=== PATIENT | male | born 1940 | race Caucasian/White ===

== ENCOUNTER 2016-09-05 12:44 | Day surgery (SDC) | payer OTHER ==
[~2016-09-05] VITALS: Ht 165.1 cm; Wt 46.6 kg
[2016-09-05] MEDS ORDERED: SODIUM CHLORID 0.9% 500 ML IV PRN (13:00)
[2016-09-05] MEDS ORDERED: LACTATED RINGER'S 1000 ML IV PRN (13:00)
[2016-09-05] MEDS ORDERED: METOPROLOL TARTRATE 25 MG TAB PO PRN (13:15)
[2016-09-05] MEDS ORDERED: CHLORHEXIDINE GLUCONATE 2 % 1 PACK (2 CLOTHS) TOPICAL PRN (13:15)
[2016-09-05] MEDS ORDERED: POVIDONE IODINE 5% (ANTISEPSIS KIT) 4 APPLICATIONS EACH NARE PRN (13:15)
[2016-09-05] MEDS ORDERED: INSULIN HUMAN REGULAR 1,000 UNITS/10 ML VIAL SQ PRN (13:15)
[2016-09-05] MEDS ORDERED: LORazepam 1 MG TAB SL SCH (13:15)
[2016-09-05] MEDS ORDERED: FISHCAP4 PO (13:26)
[2016-09-05] MEDS ORDERED: LIPI40TA PO (13:26)
[2016-09-05] MEDS ORDERED: PANT20TA2 PO (13:26)
[2016-09-05] MEDS ORDERED: LISI-515 PO (13:26)
[2016-09-05] MEDS ORDERED: MULT-135 PO (13:27)
[2016-09-05] MEDS ORDERED: METO-309 PO (13:27)
[2016-09-05] MEDS ORDERED: XARE20TA PO (13:27)
[2016-09-05 13:28] VITALS: BP 134/74; PULSE 72; RESP 16; TEMP 98.1; O2SAT 100
[2016-09-05] MEDS ORDERED: ceFAZolin 2 GM PREMIX 50 ML IV SCH (13:30)
[2016-09-05] MEDS ORDERED: NS 1000 ML IV SCH (13:30)
[2016-09-05] MEDS ORDERED: MUPIROCIN 2% OINT 1 APPLIC/GM SYR NASAL SCH (13:30)
[2016-09-05] MEDS ORDERED: CHLORHEXIDINE GLUCONATE 2 % 1 PACK (2 CLOTHS) TOPICAL SCH (13:30)
[2016-09-05] MEDS ORDERED: VANCOMYCIN 1000 MG/NS 250 ML IV SCH ×2 (13:30)
[2016-09-05 13:55] LABS: AUTOMATED NEUTROPHIL # 5.1 TH/MM3 (1.8-7.7); BASOPHIL % 0.4 % (0.0-2.0); EOSINOPHIL # 0.1 TH/MM3 (0-0.4); EOSINOPHIL % 1.6 % (0.0-4.0); HEMATOCRIT 43.9 % (39.0-51.0); HEMO FLAGS DIFF FINAL; LYMPH % 20.3 % (9.0-44.0); LYMPHOCYTE # 1.5 TH/MM3 (1.0-4.8); MEAN CORPUSCULAR HEMOGLOBIN 32.5 PG (27.0-34.0); MEAN CORPUSCULAR HGB CONC 34.2 % (32.0-36.0); MONO % 10.6 % (0.0-8.0); NEUT % 67.1 % (16.0-70.0); PLATELET COUNT 240 TH/MM3 (150-450); RED BLOOD COUNT 4.62 MIL/MM3 (4.50-5.90); RED CELL DISTRIBUTION WIDTH 13.2 % (11.6-17.2); WHITE BLOOD COUNT 7.6 TH/MM3 (4.0-11.0)
[2016-09-05 14:02] LABS: APTT (PATIENT) 26.2 SEC (24.3-30.1); PROTHROMBIN TIME - PATIENT 10.8 SEC (9.8-11.6)
[2016-09-05 14:11] LABS: BICARBONATE 27.2 MEQ/L (21.0-32.0); POTASSIUM 3.9 MEQ/L (3.5-5.1)
[2016-09-05] MEDS ORDERED: ISOPROTERENOL HCL 1 MG/5 ML AMP ONE (17:51)
[2016-09-05] MEDS ORDERED: SODIUM CHLOR 0.9% 250 ML INJ 250 ML ONE (17:52)
[2016-09-05] MEDS ORDERED: MIDAZOLAM HCL 2 MG/2 ML VIAL ONE (17:52)
[2016-09-05] MEDS ORDERED: HEPARIN-NS/PF INJ 500 ML ONE (17:56)
[2016-09-05] MEDS ORDERED: PROPOFOL 200 MG/20 ML AMP IV ONE (18:23)
[2016-09-05] MEDS ORDERED: PHENYLEPH/NS 1000 MCG/10 ML SYR IV ONE (18:23)
[2016-09-05] MEDS ORDERED: SODIUM CHLOR 0.9% 250 ML BAG IV ONE (18:23)
[2016-09-05] MEDS ORDERED: ONDANSETRON HCL 4 MG/2 ML VIAL IV PRN (19:00)
[2016-09-05] MEDS ORDERED: METOCLOPRAMIDE HCL 10 MG/2 ML VIAL IV PRN (19:00)
[2016-09-05] MEDS ORDERED: SODIUM CHLOR 0.9% 250 ML INJ 250 ML IV PRN (19:00)
[2016-09-05] MEDS ORDERED: LIDOCAINE HCL 1% 50 ML VIAL INFIL PRN (19:00)
[2016-09-05] MEDS ORDERED: oxyCODONE/ACETAMINOPHEN 5 MG/325 MG TAB PO PRN ×2 (19:00)
[2016-09-05] MEDS ORDERED: ATROPINE SULFATE 1 MG/ML VIAL IV PRN (19:00)
[2016-09-05] MEDS ORDERED: LORazepam 2 MG/ML VIAL IV PRN (19:00)
[2016-09-05] MEDS ORDERED: BACITRACIN OINT 0.9 GM PKT TOP ONE (20:00)
[2016-09-05 20:50] VITALS: BP 99/57; PULSE 85; RESP 16; TEMP 97.6; O2SAT 99
[2016-09-05 20:56] VITALS: PULSE 79
[2016-09-05] MEDS ORDERED: ATORVASTATIN 40 MG TAB PO SCH (21:00)
[2016-09-05] MEDS ORDERED: DO NOT ADM ANY ANTICOAGULANT DRUGS PRN (21:45)
[2016-09-05 22:00] VITALS: PULSE 80
[2016-09-05] MEDS: RIVAROXABAN 20 MG TAB PO SCH (22:12)
[2016-09-05] MEDS: METOPROLOL TARTRATE 50 MG TAB PO SCH (22:12)
[2016-09-05 22:49] VITALS: O2SAT 98
[2016-09-05 23:00] VITALS: BP 101/50; PULSE 79; PULSE 80; RESP 16; TEMP 97.8; O2SAT 98
[2016-09-06] VITALS (13 sets, daily range): BP systolic 107–108; BP diastolic 54–60; PULSE 69–94; RESP 16; TEMP 97.9–98; O2SAT 95–99
[2016-09-06 06:12] LABS: APTT (PATIENT) 36.2 SEC (24.3-30.1); INTERNATIONAL NORMALIZED RATIO 1.5 RATIO; PROTHROMBIN TIME - PATIENT 16.7 SEC (9.8-11.6)
--- NOTE | 2016-09-06 06:59 | PD.CARD.PN ---
Subjective Subjective Remarks Feels ok. Objective Medications Current Medications Medications (Trade) Dose Ordered Sig/Yaakov Route Start Time Stop Time Status Last Admin Lactated Ringer's 1,000 ml @ 30 mls/hr Q24H PRN IV 09/05/16 13:00 09/08/16 12:59 Sodium Chloride 500 ml @ 30 mls/hr [id number] PRN IV 09/05/16 13:00 09/08/16 12:59 (NS 1000 ml Inj) 1,000 ml @ 30 mls/hr Q24H IV 09/05/16 13:30 (Percocet 5-325 Mg) 1 tab Q4H PRN PO 09/05/16 19:00 (Percocet 5-325 Mg) 2 tab Q4H PRN PO 09/05/16 19:00 (Ativan Inj) 0.5 mg UNSCH PRN IV 09/05/16 19:00 09/06/16 18:59 Atropine Sulfate 0.5 mg 0.5 mg UNSCH PRN IV 09/05/16 19:00 (NS 250 ml Inj) 250 ml @ 500 mls/hr ONCE PRN IV 09/05/16 19:00 09/06/16 18:59 (Reglan Inj) 10 mg Q4H PRN IV 09/05/16 19:00 (Zofran Inj) 4 mg Q4H PRN IV 09/05/16 19:00 (Xylocaine 1% Inj (50 ml)) 10 ml UNSCH PRN INFIL 09/05/16 19:00 09/06/16 18:59 (Lipitor) 40 mg HS PO 09/05/16 21:00 09/05/16 22:11 (Prinivil) 20 mg DAILY PO 09/06/16 09:00 (Lopressor) 50 mg BID PO 09/05/16 21:00 09/05/16 22:12 (Theragran) 1 tab DAILY PO 09/06/16 09:00 (Protonix) 20 mg DAILY PO 09/06/16 09:00 (Xarelto) 20 mg DAILY PO 09/05/16 21:00 09/05/16 22:12 Miscellaneous Information ALL NURSING DEPARTME... UNSCH PRN .XX 09/05/16 21:45 09/06/16 21:44 Vital Signs / I&O Vital Signs Date Time Temp Pulse Resp B/P Pulse Ox O2 Delivery O2 Flow Rate FiO2 09/06/16 06:00 69 09/06/16 05:02 76 09/06/16 04:00 78 09/06/16 03:00 97.9 83 16 108/60 99 09/06/16 03:00 75 09/06/16 02:00 72 09/06/16 01:00 74 09/06/16 00:00 80 09/05/16 23:00 97.8 80 16 101/50 98 09/05/16 23:00 79 09/05/16 22:49 98 09/05/16 22:00 80 09/05/16 20:56 79 09/05/16 20:50 97.6 85 16 99/57 99 09/05/16 13:28 98.1 72 16 134/74 100 I/O 09/05/16 09/05/16 09/05/16 09/06/16 09/06/16 09/06/16 07:00 15:00 23:00 07:00 15:00 23:00 Intake Total 240 ml Output Total 300 ml Balance -60 ml Intake Oral 240 ml Output Urine Total 300 ml # Bowel Movements 0 Physical Exam GENERAL: Well-nourished, well-developed patient. SKIN: Warm and dry. Groin sites soft with no bruising or swelling. HEAD: Normocephalic. EYES: No scleral icterus. No injection or drainage. NECK: Supple, trachea midline. No JVD or lymphadenopathy. CARDIOVASCULAR: Regular rate and rhythm without murmurs, gallops, or rubs. RESPIRATORY: Breath sounds equal bilaterally. No accessory muscle use. GASTROINTESTINAL: Abdomen soft, non-tender, nondistended. EXTREMITIES: No cyanosis, or edema. NEUROLOGICAL: Awake, alert, and oriented x 3. Non-focal. Laboratory Laboratory Tests Test 09/05/16 09/06/16 13:30 05:45 White Blood Count 7.6 TH/MM3 Red Blood Count 4.62 MIL/MM3 Hemoglobin 15.0 GM/DL Hematocrit 43.9 % Mean Corpuscular Volume 95.0 FL Mean Corpuscular Hemoglobin 32.5 PG Mean Corpuscular Hemoglobin 34.2 % Concent Red Cell Distribution Width 13.2 % Platelet Count 240 TH/MM3 Mean Platelet Volume 9.2 FL Neutrophils (%) (Auto) 67.1 % Lymphocytes (%) (Auto) 20.3 % Monocytes (%) (Auto) 10.6 % Eosinophils (%) (Auto) 1.6 % Basophils (%) (Auto) 0.4 % Neutrophils # (Auto) 5.1 TH/MM3 Lymphocytes # (Auto) 1.5 TH/MM3 Monocytes # (Auto) 0.8 TH/MM3 Eosinophils # (Auto) 0.1 TH/MM3 Basophils # (Auto) 0.0 TH/MM3 CBC Comment DIFF FINAL Differential Comment Prothrombin Time 10.8 SEC 16.7 SEC Prothromb Time International 1.0 RATIO 1.5 RATIO Ratio Activated Partial 26.2 SEC 36.2 SEC Thromboplast Time Sodium Level 141 MEQ/L Potassium Level 3.9 MEQ/L Chloride Level 105 MEQ/L Carbon Dioxide Level 27.2 MEQ/L Anion Gap 9 MEQ/L Blood Urea Nitrogen 20 MG/DL Creatinine 1.08 MG/DL Estimat Glomerular Filtration 67 ML/MIN Rate Random Glucose 92 MG/DL Calcium Level 9.3 MG/DL Blood Type O POSITIVE Antibody Screen NEGATIVE Blood Bank Comment Assessment and Plan Problem List: (1) Atrial flutter Assessment and Plan: NSR this a.m. s/p ablation. (2) S/P ablation of atrial flutter Assessment and Plan: Groin sites stable, continue Xarelto, DC home, f/u with Dr. Talbert in 3 weeks. Discussed Condition With pt., RN, Dr. Talbert. Problem Qualifiers (1) Atrial flutter: Qualified Code: I48.92 - Atrial flutter, unspecified type Maryam José [facility] Sep 06, 2016 06:59
[2016-09-06] MEDS ORDERED: LISINOPRIL 20 MG TAB PO SCH (09:00)
[2016-09-06] MEDS ORDERED: MULTIVITAMIN TAB PO SCH (09:00)
[2016-09-06] MEDS ORDERED: PANTOPRAZOLE SOD 20 MG DELAYED RELEASE TAB PO SCH (09:00)
[2016-09-06] MEDS: RIVAROXABAN 20 MG TAB PO SCH (09:24)
[2016-09-06] MEDS: METOPROLOL TARTRATE 50 MG TAB PO SCH (09:24)
--- NOTE | 2016-09-06 10:20 | EKG ---
Date Performed: 09/06/2016 Time Performed: 04:48:12 PTAGE: 76 years EKG: Sinus arrhythmia with 1st degree A-V block Left ventricular hypertrophy by voltage only Abn ormal ECG PREVIOUS TRACING : 09/05/2016 21.13 Compared to the previous tracing T wave abnormalities are l ess prominent DOCTOR: Dalton Kelly Interpretating Date/Time 09/06/2016 10:20:06
--- NOTE | 2016-09-06 12:54 | EKG ---
Date Performed: 09/05/2016 Time Performed: 21:13:02 PTAGE: 76 years EKG: Sinus arrhythmia with 1st degree A-V block Left ventricular hypertrophy Anterolateral T wav e changes may be due to hypertrophy and/or ischemia Abnormal ECG NO PREVIOUS TRACING DOCTOR: Dalton Kelly Interpretating Date/Time 09/06/2016 12:52:52
--- NOTE | 2016-09-06 13:26 | EKG ---
Date Performed: 09/05/2016 Time Performed: 13:53:30 PTAGE: 76 years EKG: Sinus rhythm with 1st degree A-V block Consider left atrial abnormality Left ventricular hypertrophy by voltage o nly Septal T wave changes are nonspecific Abnormal ECG NO PREVIOUS TRACING DOCTOR: Dalton Kelly Interpretating Date/Time 09/06/2016 13:25:47
--- NOTE | 2016-09-10 12:14 | MA ---
cc: ABRAHAN BOWMAN M.D. DATE 09/10/2016 PROCEDURE PERFORMED Electrophysiology study, CS cannulation, 3-D mapping radiofrequency ablation of atrial flutter, repeat electrophysiology study on Isuprel infusion. INDICATIONS FOR PROCEDURE Mr. Josue is a 76-year-old gentleman with atrial flutter, very symptomatic, referred for electrophysiology study and ablation. The risks, the nature and the benefit of the procedure are clearly stated to him. The risks include pneumothorax, cardiac perforation, stroke and even . He understood and agreed to proceed. PROCEDURE After written informed consent was obtained, the patient was brought to the EP Lab where he was prepped and draped in the usual sterile fashion. Conscious sedation was initiated and maintained throughout the procedure by the anesthesiologist. Once sedation was verified, the right and left inguinal area was anesthetized with 2% Xylocaine. Using modified Seldinger technique, the left femoral vein was cannulated on three occasions and three guidewires advanced over the wire. Three 5-Kazakh Hemaquets were advanced. Then the right femoral vein was done on two occasions. Two guidewires were advanced over the wire. A 6 and an 8-Kazakh Hemaquet were advanced. Then, under fluoroscopic guidance through the 5 and 6-Kazakh Hemaquet, four 5-Kazakh Kirsty curved quadripolar electrophysiology catheters were advanced and positioned on the His, upper right atrium, coronary sinus and right ventricular apex. Basic interval was measured. The patient was in atrial flutter. Entrainment was performed and was positive. Then, through the 8-Kazakh Hemaquet, a Cordis F-curve, 8-mm mapping and radiofrequency ablation catheter was advanced. Using Ecorithm endocardial solution mapping system, a three-dimensional configuration of the right atrium was performed. Then the catheter was placed at the critical isthmus. Radiofrequency energy was delivered. During the ablation the cycle length was prolonged and subsequently tachyarrhythmia terminated. Further burn was delivered in the area. Then atrial pacing protocol was repeated again and no tachyarrhythmia was induced. Pacing lateral to the line showed activation to the His compared to the CS that indicated bilateral line of block. Then Isuprel infusion was reinitiated. Again no tachyarrhythmia was induced during Isuprel infusion. At that point the procedure was complete. All catheters were removed. The is patient going to be transferred to the recovery room. No incident reported. The patient tolerated the procedure, blood loss minimal. 1. ELECTROCARDIOGRAM: At baseline the patient was in atrial flutter. Postprocedure the patient is sinus rhythm. 2. BASIC INTERVAL: The base cycle length was around 630 milliseconds. Post ablation it was around 180 milliseconds. 3. ATRIAL PACING PROTOCOL: No tachyarrhythmia was induced post ablation. 4. TACHYARRHYTHMIA: Atrial flutter was mapped and ablated. Ablation was successful. CONCLUSIONS Successful electrophysiology study, mapping and radiofrequency ablation of atrial flutter. COMMENT AND RECOMMENDATIONS The patient is going to be transferred to the telemetry unit. He will be observed and when stable will be discharged home. Abrahan Bowman MD HS/SSB /11:13 AM /12:06 PM
== END 2016-09-06 10:40 | disposition home or self-care (01) ==
LOC: HDOC 12:44 → HDIC 12:45 → HCIN 20:20 → HDOC 09-06 10:40
PROVIDERS: ATTEND Internal Medicine Interventional Cardiology
DX: I48.92 Unspecified atrial flutter (principal); R94.31 Abnormal electrocardiogram [ECG] [EKG]; Z79.899 Other long term (current) drug therapy; Z79.01 Long term (current) use of anticoagulants
CPT/HCPCS: 80048; 85025; 85610; 85730; 86850; 86900; 86901; 92960; 93005; 93613; 93623; 93653; C1730; C1732; C2630; J1644; J2250; J2370; J3010; J7050

== ENCOUNTER 2016-10-08 06:31 | Day surgery (SDC) | payer OTHER ==
[2016-10-08] VITALS (9 sets, daily range): BP systolic 91–130; BP diastolic 54–76; PULSE 63–93; RESP 18; TEMP 97.6–98.1; O2SAT 97–100
[~2016-10-08] VITALS: Ht 165.1 cm; Wt 46.8 kg
[~2016-10-08 06:31] MED LIST: LIPI40TA PO; LISI-515 PO; METO-309 PO; MULT-135 PO; PANT20TA2 PO; XARE20TA PO
[2016-10-08] MEDS ORDERED: LACTATED RINGER'S 1000 ML IV PRN (07:15)
[2016-10-08] MEDS ORDERED: INSULIN HUMAN REGULAR 1,000 UNITS/10 ML VIAL SQ PRN (07:15)
[2016-10-08] MEDS ORDERED: METOPROLOL TARTRATE 25 MG TAB PO PRN (07:15)
[2016-10-08] MEDS ORDERED: LORazepam 1 MG TAB SL SCH (07:15)
[2016-10-08] MEDS ORDERED: SODIUM CHLORID 0.9% 500 ML IV PRN (07:15)
[2016-10-08] MEDS ORDERED: SODIUM CHLORID 0.9% 500 ML INJ 500 ML IV SCH (07:15)
[2016-10-08] MEDS ORDERED: CHLORHEXIDINE GLUCONATE 2 % 1 PACK (2 CLOTHS) TOPICAL PRN (07:15)
[2016-10-08] MEDS ORDERED: POVIDONE IODINE 5% (ANTISEPSIS KIT) 4 APPLICATIONS EACH NARE PRN (07:15)
[2016-10-08] MEDS ORDERED: FISHCAP4 PO (07:55)
[2016-10-08 08:24] LABS: AUTOMATED NEUTROPHIL # 5.2 TH/MM3 (1.8-7.7); BASOPHIL % 0.5 % (0.0-2.0); EOSINOPHIL # 0.1 TH/MM3 (0-0.4); HEMATOCRIT 46.6 % (39.0-51.0); HEMO FLAGS DIFF FINAL; LYMPH % 15.9 % (9.0-44.0); LYMPHOCYTE # 1.1 TH/MM3 (1.0-4.8); MEAN CELL VOLUME 96.1 FL (80.0-100.0); MEAN CORPUSCULAR HEMOGLOBIN 32.9 PG (27.0-34.0); MEAN CORPUSCULAR HGB CONC 34.2 % (32.0-36.0); MONO % 8.7 % (0.0-8.0); NEUT % 72.9 % (16.0-70.0); PLATELET COUNT 213 TH/MM3 (150-450); RED BLOOD COUNT 4.86 MIL/MM3 (4.50-5.90); WHITE BLOOD COUNT 7.2 TH/MM3 (4.0-11.0)
[2016-10-08 08:35] LABS: APTT (PATIENT) 21.9 SEC (24.3-30.1); PROTHROMBIN TIME - PATIENT 11.2 SEC (9.8-11.6)
[2016-10-08 09:07] LABS: BICARBONATE 27.1 MEQ/L (21.0-32.0); POTASSIUM 4.2 MEQ/L (3.5-5.1)
[2016-10-08] MEDS ORDERED: ISOPROTERENOL HCL 1 MG/5 ML AMP ONE (10:49)
[2016-10-08] MEDS ORDERED: HEPARIN SODIUM - IV 10,000 UNITS/10 ML VIAL ONE (10:49)
[2016-10-08] MEDS ORDERED: HEPARIN-D5W INJ 250 ML ONE (10:49)
[2016-10-08] MEDS ORDERED: fentaNYL CITRATE 250 MCG/5 ML AMP ONE (10:49)
[2016-10-08] MEDS ORDERED: PROTAMINE SULFATE 50 MG/5 ML VIAL ONE (10:49)
[2016-10-08] MEDS ORDERED: METOPROLOL TARTRATE 5 MG/5 ML VIAL ONE (12:47)
--- NOTE | 2016-10-08 13:03 | PD.CARD ---
Atrial Fibrillation Ablation PROCEDURE DATE: October 08, 2016 PROCEDURES PERFORMED: 1. Electrophysiology study on Isuprel infusion 2. CS cannulation 3. 3-D mapping 4. Transseptal approach 5. Right and left heart catheterization 6. Intracardiac echo 7. Radiofrequency ablation of atrial fibrillation 8. Pulmonary vein isolation 9. Posterior wall ablation 10. Mitral valve isolation 11. Mitral line creation 12. Left atrial tachycardia ablation 13. Roof line creation 14. Floor line creation 15. Anterior wall ablation INDICATIONS FOR THE PROCEDURE Mr. Josue is a 76-year-old male with atrial fibrillation, very symptomatic, on anticoagulation referred for electrophysiology study and ablation. The risks, the nature and the benefits of the procedure were clearly stated to him. The risks include pneumothorax, cardiac perforation, stroke, need for open heart surgery and even . The patient understood and agreed to proceed. DESCRIPTION OF THE PROCEDURE IN DETAIL As written informed consent was obtained prior to esophageal echocardiogram, the patient was kept on the table where he was prepped and draped in the usual sterile fashion. Conscious sedation was initiated and maintained throughout the procedure by the anesthesiologist. Once sedation was verified, the right and left inguinal areas were anesthetized with 2% Xylocaine. Using modified Seldinger technique, the left femoral vein was cannulated on three occasions, three guidewires were advanced. Over the wire a 6, 7 and a 10-Irish Hemaquet were advanced. Then the left femoral artery was cannulated on one occasion, one guidewire was advanced. Over the wire a 4-Irish Hemaquet was advanced. Then the right femoral vein was cannulated on one occasion, one guidewire was advanced. Over the wire a 8-Irish Hemaquet was advanced. Then under fluoroscopic guidance through the 6 and 7-Irish Hemaquet, two 5-Irish Kirsty curved quadripolar electrophysiology catheters were advanced and placed around the His as well as coronary sinus. Basic interval was measured. The patient was in atrial fibrillation. Through the 10-Irish Hemaquet, a Cordis Cleaning AcuNav intracardiac echo catheter was advanced and placed at the right atrium. Multiple view was obtained. There was no pericardial effusion, pulmonary vein was seen, atrial septal was visualized. Then the 8-Irish Hemaquet in the right femoral vein was exchanged for Agilis transseptal sheath that was placed all the way to the superior vena cava. Through the sheath a Taisha needle was advanced, then the sheath, the dilator and the needle were progressed until foci engaged. Once engaged, the needle was advanced. RF was delivered for 2 seconds. I was able to cross into the left atrium. Once the needle crossed, the dilator was advanced. Once the dilator crossed, the sheath was advanced. Once the sheath crossed, the dilator and the needle were removed. At this point I did flood the system and fluid movement was seen in the left atrium the indicates the sheath is in good position. The patient already received 6,000 units of heparin. The goal is to keep an ACT around 350 during ablation. Then through the sheath a [place]. Jeffrey 20 pulse circumferential catheter was advanced. Using Lookmash endocardial solution mapping system, a two- dimensional configuration of the left atrium was obtained. Points were taken at the left superior and inferior veins, right superior and inferior veins, mitral valve, and appendages. Then through the sheath a St. Jeffrey TactiCath 65cm 3.5mm irrigated tipped mapping and radiofrequency ablation catheter was advanced. Esophageal probe was placed temperature monitoring during ablation. When it increased to 0.5 degrees Celsius above baseline, I moved to a different area of the atrium. First I did isolate the left superior and inferior vein. I did make a big [place] around the veins. Posterior was ablated. Then a roof line was created, a floor line was created, a mitral line was isolated. Patient was in atrial tachycardia. Then the right superior and inferior veins were isolated. While ablating at the posterior area of the right inferior vein, cycle length prolong then patient went into sinus rhythm. Then back into atrial tach. A floor line was created. Again patient back into sinus rhythm. Atrial pacing was performed. No tachycardia was induced. I did remap the atrium. There is no significant signal in the atrium. The circumferential catheter again into the vein. There was no signal into the vein, pacing from the vein showed no conduction to the atrium. Isuprel infusion was initiated at 20 mcg for over 10 minutes. No tachyarrhythmia was induced, post Isuprel no tachyarrhythmia was induced. At that point the procedure was complete. All catheters were removed, atrial septal sheath was exchanged for 9-Irish Hemaquet, intracardiac echo showed no pericardial effusion. There is still good flow in the pulmonary vein. The patient is going to be transferred to the recovery room. No incident report. The patient tolerated the procedure. Blood loss was minimal. FINDINGS 1. Electrocardiogram: At baseline the patient was in atrial fibrillation, post procedure the patient was in sinus rhythm. 2. Basic interval: Base cycle length was around 520. Post ablation she was around 980 milliseconds. AH at 80 and HV at 52 milliseconds. 3. Tachyarrhythmia: Atrial fibrillation was mapped and ablated. Atrial tachycardia was ablated. The ablation was successful. CONCLUSION Successful electrophysiology study, mapping, radiofrequency ablation of atrial fibrillation, left atrial tachycardia, pulmonary vein isolation, posterior ablation, mitral valve isolation, mitral line creation, roof line creation, floor line creation, left atrial tachycardia. COMMENTS AND RECOMMENDATIONS The patient is going to be transferred to the telemetry unit. Will be observed and when stable can be discharged home. Azra Talbert MD October 08, 2016 13:02
--- NOTE | 2016-10-08 13:10 | CATHPROC ---
easyfolio HIS Report Study Information Study Number Admission Scheduled Start Study Start [id number] 10/08/2016 10/08/2016 10/08/2016 Referring Institution Admit Source Facility Department 1 Other [facility] Physician and Clinical Staff Initial Azra Fonseca Tank Farm Operator Roseanne Lockwood RCIS Tank Farm Operator Joann Shane,RT(R) TECH2 Other Anesthesia, CONDUCTOR SLEEPING CAR Recorder Lamar Gong,PATRICK Recorder Guera Waldrop,PATRICK Scrub Chucho Suarez,RT(R) Procedures Performed Procedure Location (Site) Vessel Name Ablation Procedure ICE CATHETER INSERT RA Atruim RF Ablation LT. ATRIUM LT. ATRIUM Equipment Time Chuck Boner Description Size Mfg Part Number Used/Scraped NEEDLE, TRANSSEPTAL NRG 98 10:43 [facility] [id number] Used C1 [employer]/ EP 10:43 KIT, TRANSDUCER / AFIB [id number] Used PACER COVER, TRANSDUCER CABLE 10:43 [employer] 612-113 Used ACUNAV 10:43 CORDIS/PACER SHEATH, FR10 FLAVIO 11CM FR 10 [id number] Used 10:43 CORDIS/PACER SHEATH, FR9 FLAVIO 11CM FR 9 [id number] Used 12:26 CORDIS/PACER SHEATH, FR9 FLAVIO 11CM FR 9 [id number] Used 10:43 Funding [employer] INDUSTRIES PACK, CCL CUSTOM * [id number] Used 10:43 Funding Profiles PACER GIRON, LIMB * 2530 Used [id number] 10:43 [employer] MEDICAL SHEATH, FR4.5 PRELUDE 11CM FR 4.5 Used [id number] 10:43 NAMIC TUBING, HIGH PRESSURE 48" 48" [id number] Used 10:43 NAMIC TUBING, HIGH PRESSURE 48" 48" [id number] Used 10:43 [employer] BL[employer],WARM AIR CCL * [id number] Used [id number] CATHETER, TACTICATH ABLAT BUNDLE 10:43 [employer] Used 65 BUNDLE *[id number] BUNDLE [id number] CATHETER, FR7 OPTIMA SPIRAL 10:43 [employer] FR7 *[id number] Used BUNDLE BUNDLE [id number] 10:43 [employer] CATHETER, JSN, QUAD BUNDLE FR 5 *[id number] Used BUNDLE [id number] 10:43 [employer] CATHETER, JSN, QUAD BUNDLE FR 5 *[id number]- Used BUNDLE 10:43 [employer] ELECTRODE KIT, MAYNOR X SURFACE * [id number] Used SET, COOL POINT TUBING 10:43 [facility] [employer] [id number] Used BUNDLE 10:43 [employer] SHEATH, EPS, FR6 FAST CATH FR 6 [id number] Used 10:43 [employer] SHEATH, EPS, FR7 FAST CATH FR [address] [id number] Used 10:43 [employer] SHEATH, EPS, FR8 FAST CATH FR 8 [id number] Used SHEATH, FR8.5 STEERABLE SM 10:43 [facility] 71CM [id number] Used 71CM BUNDLE CATHETER, ACUNAV FR10 ICE [id number] 11:51 JANNETTE FR 10 Used (JANNETTE) *[id number] [facility] PAD, ELECTROSURGICAL 10:43 * [id number] Used SURGICAL GROUNDING (BLUE) History: Allergies Allergy Reaction NKDA No Known Allergies History: Risk Factors Hypertension Dyslipidemia Yes Yes Diabetes Labs Hgb (g/dl) Hct (%) RBC (MIL/MM3) WBC (l/cumm) Platelets (thousands) 12.00-18.00 37.00-55.00 4.80-6.20 4.80-10.80 140.00-450.00 16.0 46 4.8 7.2 213 Medication Medication Total Dose (Bolus/Oral) Medication Total Dosage/Unit 1% XYLOCAINE 40 mL HEPARIN 7000 units LOPRESSOR 5 mg PROTAMINE 40 mg Medications (Bolus/Oral) Medication Time Given Dosage/Unit Administered By Reason 1% XYLOCAINE 10/08/2016 11:38:48 AM 20 mL Azra Talbert 20 mL 1% XYLOCAINE given in lab by Azra Talbert in Left Groin via Subcutaneous. 1% XYLOCAINE 10/08/2016 11:42:21 AM 20 mL Azra Talbert 20 mL 1% XYLOCAINE given in lab by Azra Talbert in Right Groin via Subcutaneous. HEPARIN 10/08/2016 11:47:00 AM 6000 units Anesthesia, CONDUCTOR SLEEPING CAR 6000 units HEPARIN given in lab by Anesthesia, CONDUCTOR SLEEPING CAR via Peripheral IV. HEPARIN 10/08/2016 12:11:03 PM 1000 units Anesthesia, CONDUCTOR SLEEPING CAR As per physicians el bal order 1000 units HEPARIN given in lab by Anesthesia, CONDUCTOR SLEEPING CAR via Peripheral IV. Ordered by Azra Talbert. Reas on: As per physicians verbal order. LOPRESSOR 10/08/2016 12:49:00 PM 5 mg Anesthesia, CONDUCTOR SLEEPING CAR As per physicians verb al order 5 mg LOPRESSOR given in lab by Anesthesia, CONDUCTOR SLEEPING CAR via Peripheral IV. Ordered by Azra Talbert. Reason: As per physicians verbal order. PROTAMINE 10/08/2016 12:56:27 PM 40 mg Anesthesia, CONDUCTOR SLEEPING CAR As per physicians verb al order 40 mg PROTAMINE given in lab by Anesthesia, CONDUCTOR SLEEPING CAR via Peripheral IV. Ordered by Arza Talbert. Reason: As per physicians verbal order. Medication (Drip) Medication Time Given Dosage/Unit Concentration/Unit Diluent (ml) Solution HEPARIN DRIP 10/08/2016 12:11:16 PM 100 units/hr 74490 units 250 D5W 100 units/hr HEPARIN DRIP given in lab by Anesthesia, CONDUCTOR SLEEPING CAR via Peripheral IV. Pump/Drip Flow = 1 ml/h r [place] [address] units in 250 ml. Ordered by Azra Talbert. Reason: As per physicians verbal order. ISUPREL 10/08/2016 12:35:04 PM 20 mcg/min 1 mg 250 NaCl .9 20 mcg/min ISUPREL given in lab by Anesthesia, CONDUCTOR SLEEPING CAR via Peripheral IV. Pump/Drip Flow = 300 ml/hr usi ng NaCl .9 with a concentration of 1 mg in 250 ml. Ordered by Azra Talbert. Reason: As per physicians verbal order. LEVAQUIN 10/08/2016 11:08:51 AM 100 mL/hr 500 100 NaCl .9 100 mL/hr LEVAQUIN given by Anesthesia, CONDUCTOR SLEEPING CAR via Peripheral IV. Pump/Drip Flow = 0 ml/hr using NaCl . 9 with a concentration of 500 in 100 ml. Initial Case Assessment Cardiovascular HR Rhythm NIBP Chest Pain 98 af 139/91 0 Edema Present Skin color Skin None Normal Warm Dry Circulatory - Right Pulses Dorsalis Pedis 1 Scale (0,1,2,3,4,d) Circulatory - Left Pulses Dorsalis Pedis 2 Scale (0,1,2,3,4,d) Circulatory - Lower Extremities Color Lower Right Color Lower Left Normal Normal Neurological State Oriented to time-place- Alert Moves all extremities person Respiration - General Respiration Rate SpO2 (%) (B/min) 20 98 Final Case Assessment Cardiovascular HR Rhythm NIBP Chest Pain 97 sr 95/48 0 Edema Present Skin color Skin None Normal Warm Dry Circulatory - Right Pulses Dorsalis Pedis 1 Scale (0,1,2,3,4,d) Circulatory - Left Pulses Dorsalis Pedis 2 Scale (0,1,2,3,4,d) Circulatory - Lower Extremities Color Lower Right Color Lower Left Normal Normal Neurological State Lethargic Moves all extremities Respiration - General Respiration Rate SpO2 (%) O2 (lpm) (B/min) 16 100 10 Chronological Log Time Study Chronological Log 10:49:19 Patient arrived via Bed. 10:49:19 Patient Name, D.O.B, / Armband Verified By R.N. 10:49:20 Consent signed by the physician and the patient and verified by the [facility] staff. 10:49:21 Pre-op and post- op instructions given; patient acknowledges understanding of instructions. 10:49:22 Verbal Stimulation=2 Physical Stimulation=2 Airway=2 Respiration=2 TOTAL=8. (0=absent, 1=li mited, 2=present) 10:49:32 Patient has been NPO for More than 6Hrs. 10:49:32 Skin Breakdown- generalized ecchymosis et scratches to upper extremities 10:49:57 Patient Warmer Placed on the Table. 10:49:58 Disposable Defibrillator Pads Placed On Patient. 10:49:59 Edmund Prominences Protected 10:50:01 A # 20 IV was noted in the Forearm (left). Grade = 0 0.9ns kvo 10:50:03 A # 20 IV was noted in the Wrist (right). Grade = 0 0.9ns kvo 10:50:30 Anesthesia at bedside. Assumes care of patient. Assessment: Initial Case, HR=98 BPM, Rhythm=af, VTPB=400/91 mmhg, Chest Pain=0, Edema=None, Col or=Normal, Skin = Warm, Dry Right Pulses: Segun Ped=1 Left Pulses: Segun Ped=2 11:00:48 Lower Right Extremities: Color=Normal Lower Left Extremities: Color=Normal Neurological: State=Alert, Ox3, VARGAS Respiration: Resp=20 B/min, SpO2=98 % 11:01:20 Table restraints applied according to hospital policy 100 mL/hr LEVAQUIN given by Anesthesia, CONDUCTOR SLEEPING CAR via Peripheral IV. Pump/Drip Flow = 0 ml/hr using NaCl .9 with a 11:08:51 concentration of 500 in 100 ml. 11:14:21 Reference ECG taken 11:23:59 Farrar Catheter inserted by PATRICK Newton. Clear yellow drainage noted upon insertion. 11:27:48 MD paged 11:30:10 MD arrived. MM out. JA in. Time Out #2 - Consents verified, patient in correct position, all results are labled and displa yed, safety precautions 11:33:13 taken, antibiotics administered. Time out concurred by MD, individual staff and CONDUCTOR SLEEPING CAR in procedu re 11:34:00 Case Start Time Out. Correct patient, procedure, procedure equipment, site and side verified with physicia n present. Time 11:34:06 concurred by MD, individual staff and CONDUCTOR SLEEPING CAR. 11:34:17 NAT in progress 11:37:51 NAT complete 11:38:48 20 mL 1% XYLOCAINE given in lab by Azra Talbert in Left Groin via Subcutaneous. 11:39:17 Vascular access was obtained in the Fem Vein (left). 11:39:19 A SHEATH, EPS, FR6 FAST CATH FR 6 was advanced into the Fem Vein (left) using the Percutane ous technique. 11:39:39 Vascular access was obtained in the Fem Vein (left). 11:39:41 A SHEATH, EPS, FR7 FAST CATH FR 7 was advanced into the Fem Vein (left) using the Percutane ous technique. 11:39:44 Vascular access was obtained in the Fem Vein (left). 11:39:45 A SHEATH, FR10 FLAVIO 11CM FR 10 was advanced into the Fem Vein (left) using the Percutaneo us technique. 11:39:49 Vascular access was obtained in the Fem Art (left). 11:39:50 A SHEATH, FR4.5 PRELUDE 11CM FR 4.5 was advanced into the Fem Art (left) using the Percutan eous technique. 11:42:21 20 mL 1% XYLOCAINE given in lab by Azra Talbert in Right Groin via Subcutaneous. 11:42:41 Vascular access was obtained in the Fem Vein (right). 11:42:45 A SHEATH, EPS, FR8 FAST CATH FR 8 was advanced into the Fem Art (right) using the Percutane ous technique. A CATHETER, JSN, QUAD BUNDLE FR 5 was advanced vis Fem Vein (left) and placed in the CS. Placem ent was visually 11:43:50 confirmed under fluoroscopy. A CATHETER, JSN, QUAD BUNDLE FR 5 was advanced vis Fem Vein (left) and placed in the HIS. Place ment was 11:45:26 visually confirmed under fluoroscopy. 11:46:40 CATHETER, ACUNAV FR10 ICE ([facility]) FR 10 Was Postioned. 11:47:00 6000 units HEPARIN given in lab by Anesthesia, CONDUCTOR SLEEPING CAR via Peripheral IV. A SHEATH, FR8.5 STEERABLE SM 71CM BUNDLE 71CM was exchanged in the Fem Vein (right). This was n ecessary in 11:48:59 order for catheter support. 11:49:01 Yehuda needle inserted A CATHETER, FR7 OPTIMA SPIRAL BUNDLE FR7 was advanced vis Fem Vein (right) and placed in the LA . Placement 11:49:54 was visually confirmed under fluoroscopy. 11:50:00 Yehuda needle removed 11:51:00 mapping in progress 11:59:27 Mapping complete. Catheter was removed. A CATHETER, TACTICATH ABLAT 65 BUNDLE was advanced vis Fem Vein (right) and placed in the LA. P lacement was 11:59:35 visually confirmed under fluoroscopy. 12:00:00 JA out. MM in. 12:00:32 Activated Clotting Time Drawn 12:05:05 ACT (Normal Range 90-180) = 323 12:05:20 RF Ablation of the LT. ATRIUM with a CATHETER, TACTICATH ABLAT 65 BUNDLE. 1000 units HEPARIN given in lab by Anesthesia, CONDUCTOR SLEEPING CAR via Peripheral IV. Ordered by Azra Talbert . Reason: As per 12:11:03 physicians verbal order. 100 units/hr HEPARIN DRIP given in lab by Anesthesia, CONDUCTOR SLEEPING CAR via Peripheral IV. Pump/Drip Flow = 1 ml/hr using D5W 12:11:16 [place] [address] units in 250 ml. Ordered by Azra Talbert. Reason: As per physici ans verbal order. 12:17:25 Activated Clotting Time Drawn 12:25:22 ACT (Normal Range 90-180) = 343 20 mcg/min ISUPREL given in lab by Anesthesia, CONDUCTOR SLEEPING CAR via Peripheral IV. Pump/Drip Flow = 300 ml/ hr using NaCl .9 12:35:04 with a concentration of 1 mg in 250 ml. Ordered by Azra Talbert. Reason: As per physicians el bal order. 12:45:02 Isuprel off. 5 mg LOPRESSOR given in lab by Anesthesia, CONDUCTOR SLEEPING CAR via Peripheral IV. Ordered by Azra Talbert. Re ason: As per 12:49:00 physicians verbal order. 12:52:13 Ablation complete. Catheter removed. Mapping catheter in. 12:53:50 PACU called. Spoke to Yamilet 12:53:52 Catheter was removed 12:53:58 Bedside Report will be given. A SHEATH, FR9 FLAVIO 11CM FR 9 was exchanged in the Fem Vein (right). This was necessary in ord er to achieve 12:53:59 vascular hemostasis. 12:55:37 Ablation procedure performed: AFIB. 12:55:41 EP Procedure was performed. 12:55:53 No case complications noted. 12:55:54 Cine recording checked. 12:55:59 Sheath(s) left in place, sutured, 0.9ns kvo connected and will be removed in Holding Area 40 mg PROTAMINE given in lab by Anesthesia, CONDUCTOR SLEEPING CAR via Peripheral IV. Ordered by Azra Talbert. R frannie: As per 12:56:27 physicians verbal order. 12:56:53 Sterile dressing applied to sites 12:57:20 Case End Assessment: Final Case, HR=97 BPM, Rhythm=sr, NIBP=95/48 mmhg, Chest Pain=0, Edema=None, Color= Normal, Skin = Warm, Dry Right Pulses: Segun Ped=1 Left Pulses: Segun Ped=2 12:57:42 Lower Right Extremities: Color=Normal Lower Left Extremities: Color=Normal Neurological: State=Lethargic, VARGAS Respiration: Resp=16 B/min, NjN5=786 %, O2=10 lpm 12:58:59 Sterile dressing applied to site 12:59:06 Defibrillator and ground pads removed. Skin intact. 13:07:20 Activated Clotting Time Drawn 13:09:00 ACT (Normal Range 90-180) = 118 13:15:00 Patient moved to stretcher End Study - Contrast Media Used In Study Contrast Total Opened (mL) Total Used (mL) Total Wasted (mL) Unspecified 0 0 0 End Study - Radiation Exposure Fluoro Time (minutes) 2.9 End Study - Patient Disposition Complications Transferred To Interventional Outcome No Telemetry Bed successful
[2016-10-08] MEDS ORDERED: oxyCODONE/ACETAMINOPHEN 5 MG/325 MG TAB PO PRN ×2 (13:15)
[2016-10-08] MEDS ORDERED: BACITRACIN OINT 0.9 GM PKT TOP ONE (13:15)
[2016-10-08] MEDS ORDERED: METOCLOPRAMIDE HCL 10 MG/2 ML VIAL IV PRN (13:15)
[2016-10-08] MEDS ORDERED: ONDANSETRON HCL 4 MG/2 ML VIAL IV PRN (13:15)
[2016-10-08] MEDS ORDERED: ATROPINE SULFATE 1 MG/ML VIAL IV PRN (13:15)
[2016-10-08] MEDS ORDERED: SODIUM CHLOR 0.9% 250 ML INJ 250 ML IV PRN (13:15)
[2016-10-08] MEDS ORDERED: LIDOCAINE HCL 1% 50 ML VIAL INFIL PRN (13:15)
[2016-10-08] MEDS ORDERED: LORazepam 2 MG/ML VIAL IV PRN (13:15)
[2016-10-08] MEDS ORDERED: DO NOT ADM ANY ANTICOAGULANT DRUGS PRN (13:45)
[2016-10-08] MEDS ORDERED: PROPOFOL 200 MG/20 ML AMP IV ONE (15:27)
[2016-10-08] MEDS ORDERED: RIVAROXABAN 20 MG TAB PO SCH (18:00)
[2016-10-08] MEDS ORDERED: ATORVASTATIN 40 MG TAB PO SCH (21:00)
[2016-10-08] MEDS: METOPROLOL TARTRATE 50 MG TAB PO SCH (21:32)
[2016-10-09] VITALS (11 sets, daily range): BP systolic 89–124; BP diastolic 52–74; PULSE 66–82; RESP 18; TEMP 97.8–98; O2SAT 98
[2016-10-09 05:36] LABS: APTT (PATIENT) 36.1 SEC (24.3-30.1); INTERNATIONAL NORMALIZED RATIO 1.5 RATIO; PROTHROMBIN TIME - PATIENT 16.7 SEC (9.8-11.6)
--- NOTE | 2016-10-09 07:43 | EKG ---
Date Performed: 10/08/2016 Time Performed: 08:03:32 PTAGE: 76 years EKG: atrial flutter. Left ventricular hypertrophy Nonspecific ST-T changes Abnormal ECG PREVIOUS TRACING : 09/06/2016 04.48 DOCTOR: Adam Salomon Interpretating Date/Time 10/09/2016 07:42:41
--- NOTE | 2016-10-09 08:09 | PD.CARD.PN ---
Subjective Subjective Remarks Feels okay. Very anxious. Objective Medications Current Medications Medications (Trade) Dose Ordered Sig/Yaakov Route Start Time Stop Time Status Last Admin Lactated Ringer's 1,000 ml @ 30 mls/hr Q24H PRN IV 10/08/16 07:15 10/11/16 07:14 Sodium Chloride 500 ml @ 30 mls/hr [id number] PRN IV 10/08/16 07:15 10/11/16 07:14 (NS 500 ml Inj) 500 ml @ 30 mls/hr [id number] IV 10/08/16 07:15 (Percocet 5-325 Mg) 1 tab Q4H PRN PO 10/08/16 13:15 (Percocet 5-325 Mg) 2 tab Q4H PRN PO 10/08/16 13:15 (Ativan Inj) 0.5 mg UNSCH PRN IV 10/08/16 13:15 10/09/16 13:14 Atropine Sulfate 0.5 mg 0.5 mg UNSCH PRN IV 10/08/16 13:15 (NS 250 ml Inj) 250 ml @ 500 mls/hr ONCE PRN IV 10/08/16 13:15 10/09/16 13:14 (Reglan Inj) 10 mg Q4H PRN IV 10/08/16 13:15 (Zofran Inj) 4 mg Q4H PRN IV 10/08/16 13:15 (Xylocaine 1% Inj (50 ml)) 10 ml UNSCH PRN INFIL 10/08/16 13:15 10/09/16 13:14 (Lipitor) 40 mg HS PO 10/08/16 21:00 10/08/16 21:32 (Prinivil) 20 mg DAILY PO 10/09/16 09:00 (Lopressor) 50 mg BID PO 10/08/16 21:00 10/08/16 21:32 (Theragran) 1 tab DAILY PO 10/09/16 09:00 (Protonix) 20 mg DAILY PO 10/09/16 09:00 (Xarelto) 20 mg DAILY@18 PO 10/08/16 18:00 10/08/16 18:20 Patient Own Medication 1 ea DAILY PO 10/09/16 09:00 Future Hold Miscellaneous Information ALL NURSING DEPARTME... UNSCH PRN .XX 10/08/16 13:45 10/09/16 13:44 Vital Signs / I&O Vital Signs Date Time Temp Pulse Resp B/P Pulse Ox O2 Delivery O2 Flow Rate FiO2 10/09/16 06:06 69 10/09/16 05:04 66 10/09/16 04:03 67 10/09/16 03:15 98.0 66 18 89/52 98 10/09/16 03:00 74 10/09/16 02:17 66 10/09/16 01:20 67 10/09/16 00:11 75 10/08/16 23:20 97.7 74 18 91/66 98 10/08/16 23:00 74 10/08/16 22:00 82 10/08/16 21:00 84 10/08/16 20:10 97.7 88 18 109/54 100 10/08/16 20:00 92 10/08/16 19:00 93 10/08/16 18:21 97.6 87 18 118/76 97 10/08/16 16:30 86 14 118/62 100 Nasal Cannula 2 10/08/16 16:00 84 14 105/56 100 Nasal Cannula 2 10/08/16 15:30 97.4 81 14 101/52 100 Nasal Cannula 2 10/08/16 15:00 74 14 91/59 100 Nasal Cannula 2 10/08/16 14:30 74 14 101/53 100 Nasal Cannula 2 10/08/16 14:15 73 14 94/53 100 Nasal Cannula 2 10/08/16 14:00 72 14 94/52 100 Nasal Cannula 2 10/08/16 13:45 69 14 94/52 100 Nasal Cannula 2 10/08/16 13:30 71 14 92/51 100 Nasal Cannula 2 10/08/16 13:23 96.2 74 14 134/60 100 Nasal Cannula 2 I/O 10/08/16 10/08/16 10/08/16 10/09/16 10/09/16 10/09/16 07:00 15:00 23:00 07:00 15:00 23:00 Intake Total 1940 ml 240 ml Output Total 1560 ml 650 ml Balance 380 ml -410 ml Intake Oral 240 ml 240 ml IV Total 500 ml Other 1200 ml Output Urine Total 1550 ml 650 ml Estimated Blood Loss 10 ml # Bowel Movements 1 Physical Exam GENERAL: Well-nourished, well-developed patient. SKIN: Warm and dry. Groin sites soft with no swelling bruising or bleeding. HEAD: Normocephalic. EYES: No scleral icterus. No injection or drainage. NECK: Supple, trachea midline. No JVD or lymphadenopathy. CARDIOVASCULAR: Regular rate and rhythm without murmurs, gallops, or rubs. RESPIRATORY: Breath sounds equal bilaterally. No accessory muscle use. GASTROINTESTINAL: Abdomen soft, non-tender, nondistended. EXTREMITIES: No cyanosis, or edema. NEUROLOGICAL: Awake, alert, and oriented x 3. Non-focal. Laboratory Laboratory Tests Test 10/09/16 04:33 Prothrombin Time 16.7 SEC Prothromb Time International 1.5 RATIO Ratio Activated Partial 36.1 SEC Thromboplast Time Assessment and Plan Problem List: (1) Atrial fibrillation Assessment and Plan: NSR status post atrial fibrillation and atrial tachycardia ablation. (2) S/P ablation of atrial fibrillation Assessment and Plan: Continue Xarelto. Groin sites soft, NSR on telemetry DC home. F/U with Dr. Talbert in 3 weeks per my d/w him. Problem Qualifiers (1) Atrial fibrillation: Qualified Code: I48.0 - Paroxysmal atrial fibrillation Maryam José October 09, 2016 08:09
[2016-10-09] MEDS: METOPROLOL TARTRATE 50 MG TAB PO SCH (08:53)
[2016-10-09] MEDS ORDERED: PANTOPRAZOLE SOD 20 MG DELAYED RELEASE TAB PO SCH (09:00)
[2016-10-09] MEDS ORDERED: FISH OIL CHOLECALCIFEROL PO SCH (09:00)
[2016-10-09] MEDS ORDERED: LISINOPRIL 20 MG TAB PO SCH (09:00)
[2016-10-09] MEDS ORDERED: MULTIVITAMIN TAB PO SCH (09:00)
--- NOTE | 2016-10-09 17:05 | EKG ---
Date Performed: 10/08/2016 Time Performed: 13:40:07 PTAGE: 76 years EKG: Sinus rhythm POSSIBLE LEFT ATRIAL ENLARGEMENT POSSIBLE LEFT VENTRICULAR HYPERTROPHY NONSPECIFIC T-WAVE ABNORMALIT Y ABNORMAL ECG Previously present atrial fibrillation is no longer present. PREVIOUS TRACING : 10/08/2016 08.03 DOCTOR: Sylvia Randhawa Interpretating Date/Time 10/09/2016 17:04:42
--- NOTE | 2016-10-09 17:05 | EKG ---
Date Performed: 10/09/2016 Time Performed: 06:14:12 PTAGE: 76 years EKG: Sinus rhythm with borderline 1st degree A-V block Left ventricular hypertrophy Lateral T wave changes are probabl y due to ventricular hypertrophy Abnormal ECG Compared to prior tracing no significant change AMMEND COPY PREVIOUS TRACING : 10/08/2016 13.40 DOCTOR: Sylvia Randhawa Interpretating Date/Time 10/09/2016 17:05:25
== END 2016-10-09 11:28 | disposition home or self-care (01) ==
LOC: HDOC 06:31 → HDIC 06:31 → HCIN 17:42 → HDOC 10-09 11:28
PROVIDERS: ATTEND Internal Medicine Interventional Cardiology
DX: I48.0 Paroxysmal atrial fibrillation (principal); I48.92 Unspecified atrial flutter; I47.1 Supraventricular tachycardia; I10 Essential (primary) hypertension; Z79.01 Long term (current) use of anticoagulants
CPT/HCPCS: 00537; 80048; 85002; 85025; 85610; 85730; 86850; 86900; 86901; 93005; 93312; 93320; 93325; 93613; 93623; 93656; 93662; C1730; C1731; C1732; C1759; C1766; C2630; J1644; J2720; J3010

== ENCOUNTER 2018-03-26 05:06 | Inpatient (IN) ==
[~2018-03-26 05:06] MED LIST changes: -LIPI40TA PO; -LISI-515 PO; -METO-309 PO; -MULT-135 PO; +Metoprolol Tartrate 25 MG Tablet PO SCH; -PANT20TA2 PO; -XARE20TA PO
[2018-03-26] MEDS ORDERED: Dextrose 50% in Water 50 ML Vial IV.PUSH PRN ×2 (05:38→13:26)
[2018-03-26] MEDS ORDERED: Insulin Regular (For Infusion) 100 UNIT in Sodium Chlor 0.9% Inj 99 ML IV.CONT PRN ×2 (05:38→13:26)
[2018-03-26] MEDS ORDERED: Chlorhexidine 4% Topical 120 APPLIC/120 ML Bottle TOPICAL SCH (05:45)
[2018-03-26] MEDS ORDERED: Sodium Chlor 0.9% Inj 500 ML IV.CONT ONE (05:45)
[2018-03-26] MEDS ORDERED: Metoprolol Tartrate 25 MG Tablet PO ONE (05:45)
[2018-03-26] MEDS ORDERED: Sodium Chloride 0.9% Irr Bot 500 ML, ceFAZolin Inj 500 MG IRRIGATION SCH ×2 (05:45)
[2018-03-26] MEDS ORDERED: Chlorhexidine Gluconate 2% 1 Pack (2 Cloths) TOPICAL ONE (05:45)
[2018-03-26] MEDS ORDERED: ceFAZolin Inj 2,000 MG in Sodium Chlor 0.9% Inj 80 ML IV.SIG SCH (06:00)
[2018-03-26] MEDS ORDERED: Heparin - SQ 10,000 UNITS/ML Vial ONE (06:10)
[2018-03-26] MEDS ORDERED: CUST1000P IRRIGATION ONE (07:22)
[2018-03-26] MEDS ORDERED: Calcium Chloride Inj 1 GM/10 ML Syringe ONE ×2 (07:23→13:49)
[2018-03-26] MEDS ORDERED: Potassium Chlor 40 mEq Premix 40 MEQ/100 ML PIGGYBACK ONE (07:23)
[2018-03-26] MEDS ORDERED: Heparin 10,000 UNITS/10 ML Vial (for IV use) ONE (07:23)
[2018-03-26] MEDS ORDERED: Albumin Human 25% Inj 50 ML IV.SIG ONE (07:25)
[2018-03-26] MEDS ORDERED: ceFAZolin 2 GM Premix Inj 2 GM/50 ML PIGGYBACK IV.SIG ONE (07:59)
[2018-03-26] MEDS ORDERED: Protamine Sulfate Inj 50 MG/5 ML Vial ONE (11:49)
[2018-03-26] MEDS ORDERED: Acetaminophen 325 MG Tablet PO PRN (13:26)
[2018-03-26] MEDS ORDERED: Calcium Chloride Inj 1 GM/10 ML Syringe IV.PUSH PRN (13:26)
[2018-03-26] MEDS ORDERED: Phenylephrine Inj 40 MG in Sodium Chlor 0.9% Inj 496 ML IV.CONT PRN (13:26)
[2018-03-26] MEDS ORDERED: Dexmedetomidine Inj 200 MCG in Sodium Chlor 0.9% Inj 48 ML IV.CONT PRN (13:26)
[2018-03-26] MEDS ORDERED: Clevidipine Inj 25 MG/50 ML VIAL IV.CONT PRN (13:26)
[2018-03-26] MEDS ORDERED: Albumin Human 5% Inj 250 ML IV.SIG PRN (13:26)
[2018-03-26] MEDS ORDERED: fentaNYL Citrate Inj 100 MCG/2 ML Ampul IV.PUSH PRN (13:26)
[2018-03-26] MEDS ORDERED: Acetaminophen 650 MG Supp RECTAL PRN (13:26)
[2018-03-26] MEDS ORDERED: Calcium Chloride Inj 1 GM in Sodium Chlor 0.9% Inj 100 ML IV.SIG PRN (13:26)
[2018-03-26] MEDS ORDERED: Potassium Chlor 20 mEq Premix 20 MEQ/100 ML PIGGYBACK IV.SIG PRN ×3 (13:26)
[2018-03-26] MEDS ORDERED: Magnesium Sulfate Inj 2 GM in Sodium Chlor 0.9% Inj 96 ML IV.SIG PRN ×4 (13:26)
[2018-03-26] MEDS ORDERED: Post-op Orders (for Pharmacy) OTHER STA (13:26)
[2018-03-26] MEDS ORDERED: Ketorolac Inj 30 MG/ML (IVP) Vial IV.PUSH PRN (13:26)
[2018-03-26] MEDS ORDERED: RESP: Racemic Epinephrine 2.25% 0.5 ML Neb NEB PRN (13:26)
[2018-03-26] MEDS ORDERED: Morphine Sulfate Inj 2 MG/ML Vial IV.PUSH PRN (13:26)
[2018-03-26] MEDS ORDERED: Metoprolol Inj 5 MG/5 ML Vial IV.PUSH PRN (13:26)
[2018-03-26] MEDS ORDERED: Albumin Human 25% Inj 100 ML IV.SIG ONE (13:45)
[2018-03-26] MEDS ORDERED: fentaNYL Citrate Inj 250 MCG/5 ML Ampul ONE ×2 (13:49)
[2018-03-26] MEDS ORDERED: Phenylephrine Inj 40 MG in Dextrose 5% in Water Inj 496 ML IV.CONT PRN ×2 (14:21)
--- NOTE | 2018-03-26 14:30 | XR ---
EXAM DATE: 03/26/2018 1:26 PM EDT AGE/SEX: 77 years / Male INDICATIONS: Post-op AVR,MVR,TVR. CLINICAL DATA: This is the patient's initial encounter. Patient reports that signs and symptoms have been present for 1 day and indicates a pain score of Nonresponsive. MEDICAL/SURGICAL HISTORY: None. None. COMPARISON: No prior exams available for comparison. FINDINGS: ETT at the level of the clavicles. There is an NGT terminating at the GE junction. Left subclavian ce ntral line with tip in the very proximal SVC. Suspect a femoral arterial line which terminates in the proximal descending thoracic aorta. Median sternotomy wires with cardiac valve replacement. Mild dif fuse interstitial prominence with mild airspace disease at the left lung base. Cardiomediastinal cont ours are within normal limits given portable technique. Bony thorax is intact. CONCLUSION: 1. Tubes and lines, as above. 2. Expected postoperative features with minimal left lung base atelectasis/scarring. Electronically signed by: Adarsh Bob MD 03/26/2018 2:29 PM EDT
[2018-03-26] MEDS ORDERED: RASS Change Order MISCELLANE ONE (16:00)
--- NOTE | 2018-03-26 17:06 | P.OP ---
Date of procedure: 03/26/18 Anesthesia: GETA Surgeon: Obie Mathis MD Operation and Findings: PREOPERATIVE DIAGNOSES 1. Severe Mitral Insufficiency 2. Severe Tricuspid Insufficiency 3. Severe Aortic Insufficiency POSTOPERATIVE DIAGNOSES Same SURGICAL PROCEDURE 1. Aortic Valve Replacement with 23mm Medtronic Mosaic Tissue Valve 2. Mitral Valve Repair with 28mm Profile 3D Annuloplasty Ring 3. Tricuspid Valve Repair with 28mm Contour 3D Annuloplasty Ring [employer] OJ Negron ANESTHESIA General endotracheal. VETERINARY SURGERY TECHNOLOGIST Alyssa Dunn CRNA, Ron Morton MD PREPARATION ChloraPrep. NEEDLE, SPONGE AND INSTRUMENT COUNT Correct. DRAINS One 32-[place]omb[place] mediastinal tube. COMPLICATIONS None. INDICATIONS The patient is a 77-year-old with severe aortic insufficiency, mitral regurgitation and tricuspid regurgitation, presenting for surgical correction of the above pathology. DESCRIPTION OF PROCEDURE The patient was brought to the operating room and placed supine on the OR table. Following the induction of adequate general endotracheal anesthesia and placement of appropriate monitoring devices, the patient was then prepped and draped in the standard sterile fashion. Median sternotomy was performed. The pericardium was divided in the midline and the cradle created. 2 pursestring sutures of 2-0 Ethibond were placed on the aorta proximal to the takeoff of the innominate artery, a purse-string of 4-0 Prolene was placed on the superior vena cava and a final 2-0 Ethibond was placed on the right atrium for the inferior vena cava. At this point, aortic and venous cannulae were introduced and attached to the arterial and venous components of the bypass circuit respectively. Antegrade cardioplegia cannula was also placed as well as a left ventricular vent through the right superior pulmonary vein. The patient was placed on cardiopulmonary bypass and core cooling initiated to a temperature of 34 degrees centigrade. The crossclamp was applied and 1 L of antegrade cardioplegia solution ( Intermediate HTK) was given in addition to topical cooling with slushed saline. Upon achieving adequate diastolic arrest of the heart transverse aortotomy was performed and additional cardioplegia was given directly into the coronary ostia. 400 mL's was given into the left main ostium and additional 300 in the right coronary ostium. A right atriotomy was performed. Transeptal approach to the mitral valve was taken. The mitral valve was inspected and appeared to have annular dilatation with no prolapsing segments. Interrupted horizontal mattress sutures of 2 Ethibond were placed in the mitral annulus circumferentially. After adequate sizing, a 28 mm Profile 3D Mitral annuloplasty ring was brought in the surgical field and the sutures passed through the skirt and the ring was situated and anchored with the Cor-Knot device. Analysis of the valve revealed a competent valve with no regurgitation. The interatrial septum closed closed in 2 layers. This was with 4-0 Prolene; the 1st layer being horizontal mattress, the 2nd layer being running baseball stitch. The tricuspid valve was analyzed next. Horizontal mattress sutures of interrupted 2-0 Ethibond were placed on the tricuspid annulus care being taken to avoid placing sutures in the area of conduction on the septal leaflet annulus. After adequate sizing, a 28 mm Contour 3D Tricuspid annuloplasty ring was brought in the surgical field and the sutures passed through the skirt and the ring was situated and anchored with the Cor-Knot device. Analysis of the valve revealed a competent valve with no regurgitation. The right atrium was similarly closed in two layers of 4-0 Prolene. Finally the aortic valve was examined and found to have calcification at the base of the leaflets with perforation of the noncoronary leaflet and thickening of the leaflet edges. Therefore make plans were made to proceed with a aortic valve replacement. The valve leaflets were excised circumferentially in the annulus debrided of any calcific debris. Horizontal mattress sutures of 2-0 Ethibond pledgeted were placed in the aortic annulus with the pledgets on the ventricular side. After adequate sizing a 23 mm Medtronic Mosaic tissue valve was brought into the field. The sutures were passed through the skirt of the valve and the valve situated in the supra-annular position with core knots. Gradual rewarming was initiated. The aortotomy was closed in 2 layers of 4-0 Prolene, with the first layer being horizontal mattress and the second layer running stitch. The cross clamp was removed and upon achieving normothermic cardiac activity, patient was weaned from CPB without any difficulty. Transesophageal echocardiography revealed a competent aortic, mitral and tricuspid valves with no evidence of aortic stenosis or regurgitation or tricuspid insufficiency. There was trace mitral regurgitation. Protamine was given. Decannulation was performed and all sites were inspected for hemostasis. At this point the closure was undertaken. The pericardium was reapproximated in the midline. One 32-Fr chest tube was placed, and the sternum was reapproximated using stainless steel sternal wires. The musculo-fascial layer was then closed in 3 layers. The patient tolerated the procedure well and was transferred to open heart recovery in stable condition.
[2018-03-26] MEDS: Amiodarone 200 MG Tablet PO SCH (20:42)
[2018-03-26] MEDS: ceFAZolin Inj 2,000 MG in Sodium Chlor 0.9% Inj 80 ML IV.SIG SCH (20:44)
[2018-03-27] MEDS: ceFAZolin Inj 2,000 MG in Sodium Chlor 0.9% Inj 80 ML IV.SIG SCH ×3 (03:53→21:46)
--- NOTE | 2018-03-27 04:58 | XR ---
EXAM DATE: 03/27/2018 5:00 AM EDT AGE/SEX: 77 years / Male INDICATIONS: Shortness of breath, possible pneumothorax. CLINICAL DATA: This is the patient's subsequent encounter. Patient reports that signs and symptoms h ave been present for 2 days and indicates a pain score of 8/10. MEDICAL/SURGICAL HISTORY: None. CABG. COMPARISON: C, CHEST 1V SINGLE AP, 03/26/2018. . FINDINGS: The patient is status post sternotomy. There is a prosthetic aortic valve present. There is a mediast inal drain present. There is a mild left pneumothorax measuring 1 cm over the apex. In retrospect, th is was present on the prior exam. This is unchanged. The heart size is normal. There is mild patchy d ensity at the bases being worse on the left. There is silhouetting the left hemidiaphragm. CONCLUSION: Mild pneumothorax seen over the left apex. It is unchanged from the prior exam. Bibasilar areas of atelectasis or consolidation being worse on the left. This information was relayed to Dalia, the patient's nurse Electronically signed by: Satya Espinosa MD 03/27/2018 4:57 AM EDT
[2018-03-27 05:52] LABS: Hematocrit 26.7 % (39.0-51.0); Hemoglobin 9.2 gm/dL (13.0-17.0); Mean Corpuscular HGB Conc 34.5 % (32.0-36.0); Mean Corpuscular Hemoglobin 34.3 pg (27.0-34.0); Mean Corpuscular Volume 99.2 fL (80.0-100.0); Mean Platelet Volume 9.1 fL (7.0-11.0); Platelet Count 93 th/mm3 (150-450); Red Blood Count 2.69 mil/mm3 (4.50-5.90); White Blood Count 15.9 th/mm3 (4.0-11.0)
[2018-03-27 06:22] LABS: Calcium 7.7 mg/dL (8.5-10.1); Carbon Dioxide 25.9 meq/L (21.0-32.0); Magnesium 2.1 mg/dL (1.5-2.5); Potassium 3.6 meq/L (3.5-5.1)
[2018-03-27] MEDS: Amiodarone 200 MG Tablet PO SCH ×2 (10:14→21:45)
--- NOTE | 2018-03-27 10:19 | P.PNCV ---
- Note Subjective/Hospital Course: 77/ male hx of afib with ablation 2 years ago, with increased SOB with exertion , workup included ECHO , cath and NAT. Results showed severe Aortic insuff, mod -severe MR, Moderate TR other HX : HLP HTN pt electively admitted surgery 03/26 SURGICAL PROCEDURE 1. Aortic Valve Replacement with 23mm Medtronic Mosaic Tissue Valve 2. Mitral Valve Repair with 28mm Profile 3D Annuloplasty Ring 3. Tricuspid Valve Repair with 28mm Contour 3D Annuloplasty Ring pt extubated after surgery CCT 178min crystalloid 2000cc, 500cc cell saver 03/27 pt off all IV gtts BP stable , HR 70 1st degree AV block continue amiodarone , hold on BB for now OOB to chair stable to transfer to stepdown resume xarelto after chest tube dc pt requesting rehab at discharge Objective: Vital Signs - 24 hr 03/26/18 13:45 03/26/18 14:17 03/26/18 14:48 Temperature Pulse Rate 73 77 Respiratory Rate 12 12 Blood Pressure 89/52 L Pulse Oximetry 100 100 03/26/18 15:00 03/26/18 15:59 03/26/18 16:00 Temperature 98.0 F Pulse Rate 73 76 73 Respiratory Rate 19 17 19 Blood Pressure 100/65 100/63 Pulse Oximetry 100 100 100 03/26/18 19:35 03/26/18 20:00 03/26/18 20:57 Temperature 96.3 F L Pulse Rate 72 63 65 Respiratory Rate 20 22 Blood Pressure 99/54 L Pulse Oximetry 99 99 03/26/18 23:00 03/26/18 23:25 03/27/18 00:35 Temperature 97.6 F Pulse Rate 71 72 72 Respiratory Rate 20 Blood Pressure 104/53 L Pulse Oximetry 99 03/27/18 03:00 03/27/18 03:32 03/27/18 04:00 Temperature 96 F L Pulse Rate 72 72 71 Respiratory Rate 20 20 Blood Pressure 96/49 L Pulse Oximetry 99 03/27/18 07:00 Temperature 97.1 F L Pulse Rate 71 Respiratory Rate 20 Blood Pressure 103/55 L Pulse Oximetry 99 GENERAL: A&O x 3 SKIN: Warm and dry. Prevena dressing to chest HEAD: Normocephalic. EYES: No scleral icterus. No injection or drainage. NECK: Supple, trachea midline. No JVD or lymphadenopathy. CARDIOVASCULAR: Regular rate and rhythm, soft systolic murmurs, no gallops, or rubs. RESPIRATORY: Breath sounds equal bilaterally. No accessory muscle use. chest tube to wall suction , no air leak / drained 360cc/ 12 hrs GASTROINTESTINAL: Abdomen soft, non-tender, nondistended. MUSCULOSKELETAL: No cyanosis, or edema. BACK: Nontender without obvious deformity. No CVA tenderness. Labs: Laboratory Results - last 12 hr 03/26/18 03/26/18 03/27/18 21:59 23:47 02:12 WBC RBC Hgb Hct MCV MCH MCHC RDW Plt Count MPV Sodium Potassium Chloride Carbon Dioxide Anion Gap BUN Creatinine Estimated GFR POC Glucose 112 H 102 122 H Random Glucose Calcium Magnesium 03/27/18 03/27/18 03/27/18 04:15 05:30 05:30 WBC 15.9 H RBC 2.69 L Hgb 9.2 L Hct 26.7 L MCV 99.2 MCH 34.3 H MCHC 34.5 RDW 13.0 Plt Count 93 L MPV 9.1 Sodium 144 Potassium 3.6 Chloride 108 H Carbon Dioxide 25.9 Anion Gap 10 BUN 20 H Creatinine 0.86 Estimated GFR 87 L POC Glucose 106 Random Glucose 131 H Calcium 7.7 L Magnesium 2.1 03/27/18 03/27/18 03/27/18 05:32 07:45 09:35 WBC RBC Hgb Hct MCV MCH MCHC RDW Plt Count MPV Sodium Potassium Chloride Carbon Dioxide Anion Gap BUN Creatinine Estimated GFR POC Glucose 142 H 101 111 H Random Glucose Calcium Magnesium Result Diagrams: 03/27/18 05:30 03/27/18 05:30 Telemetry: NSR with 1 degree AV block - Plan (4) S/P AVR (aortic valve replacement) Plan: on ASA, plavix hold on starting BB for now HR 70 , on amiodarone Pulm toileting nebs ezpap eval for reahb at discharge (9) Acute blood loss as cause of postoperative anemia Plan: monitor labs
[2018-03-27] MEDS ORDERED: Bisacodyl 10 MG Supp RECTAL PRN (10:26)
[2018-03-27] MEDS ORDERED: Dextrose 50% in Water 50 ML Vial IV.PUSH PRN (10:26)
--- NOTE | 2018-03-27 11:27 | P.DIET ---
Nutritional Evaluation Screening comments: MDC for diet education s/p AVR and MVR. Patient Navigator to provide education. Consult RD if complexities with diet education arise.
[2018-03-27] MEDS ORDERED: Phenol 1.4% 180 ML Spray Bottle OROPHARYNG PRN (13:53)
--- NOTE | 2018-03-27 14:27 | ECG ---
Date Performed: 03/27/2018 Time Performed: 04:00:36 PTAGE: 77 years EKG: Regular supraventricular rhythm Prolonged QT interval Left ventricular hypertrophy by [place] ge only Anterior T wave changes are nonspecific Compared to previous tracing T wave flattening is new , cannot rule out ischemia Clinical correlation is recommended Abnormal ECG PREVIOUS TRACING : 12/25/2016 11.38 DOCTOR: Carlos Turner Interpretating Date/Time 03/27/2018 14:26:25
[2018-03-27] MEDS: Insulin NovoLOG Aspart Correctional Sugar Inj SQ SCH ×3 (14:50→23:53)
[2018-03-27] MEDS: Docusate Sodium 100 MG Capsule PO SCH (21:45)
[2018-03-28] MEDS: ceFAZolin Inj 2,000 MG in Sodium Chlor 0.9% Inj 80 ML IV.SIG SCH (03:45)
[2018-03-28] MEDS: Insulin NovoLOG Aspart Correctional Sugar Inj SQ SCH ×6 (03:46→20:38)
[2018-03-28 05:03] LABS: Hematocrit 24.9 % (39.0-51.0); Hemoglobin 8.5 gm/dL (13.0-17.0); Lymph # (Auto) 0.7 th/mm3 (1.0-4.8); Lymph % (Auto) 4.5 % (9.0-44.0); Mean Corpuscular HGB Conc 34.1 % (32.0-36.0); Mean Corpuscular Hemoglobin 33.8 pg (27.0-34.0); Mean Corpuscular Volume 99.2 fL (80.0-100.0); Mean Platelet Volume 9.7 fL (7.0-11.0); Mono # (Auto) 1.9 th/mm3 (0.0-0.9); Neut # (Auto) 13.3 th/mm3 (1.8-7.7); Neut % (Auto) 83.5 % (16.0-70.0); Platelet Count 83 th/mm3 (150-450); White Blood Count 15.9 th/mm3 (4.0-11.0)
[2018-03-28 05:18] LABS: Calcium 8.4 mg/dL (8.5-10.1); Carbon Dioxide 28.8 meq/L (21.0-32.0); Magnesium 2.3 mg/dL (1.5-2.5); Potassium 4.6 meq/L (3.5-5.1)
[2018-03-28 08:09] LABS: Lymphocytes 10 % (9-44); Monocytes 11 % (0-8); Ovalocytes 1+
[2018-03-28 08:10] LABS: Platelet Morphology Normal (Normal)
[2018-03-28] MEDS: Polyethylene Glycol 3350 17 GM Packet PO SCH (09:30)
[2018-03-28] MEDS: Amiodarone 200 MG Tablet PO SCH (09:31)
[2018-03-28] MEDS: Docusate Sodium 100 MG Capsule PO SCH ×2 (09:32→20:39)
[2018-03-28] MEDS: Multivitamin/Minerals Therapeutic Tablet PO SCH (09:32)
--- NOTE | 2018-03-28 14:35 | P.PNCV ---
- Note Subjective/Hospital Course: 77/ male hx of afib with ablation 2 years ago, with increased SOB with exertion , workup included ECHO , cath and NAT. Results showed severe Aortic insuff, mod -severe MR, Moderate TR other HX : HLP HTN pt electively admitted surgery 03/26 SURGICAL PROCEDURE 1. Aortic Valve Replacement with 23mm Medtronic Mosaic Tissue Valve 2. Mitral Valve Repair with 28mm Profile 3D Annuloplasty Ring 3. Tricuspid Valve Repair with 28mm Contour 3D Annuloplasty Ring pt extubated after surgery CCT 178min crystalloid 2000cc, 500cc cell saver 03/27 pt off all IV gtts BP stable , HR 70 1st degree AV block continue amiodarone , hold on BB for now OOB to chair stable to transfer to stepdown resume xarelto after chest tube dc pt requesting rehab at discharge 03/28 pt on room air chest tube dc without difficulty will also dc CVC line and resume xarelto remains in NSR for rehab at discharge Objective: Vital Signs - 24 hr 03/27/18 15:00 03/27/18 18:43 03/27/18 19:00 Temperature 98.0 F 98 F Pulse Rate 79 80 80 Respiratory Rate 18 16 20 Blood Pressure 107/52 L 118/58 L 118/56 L Pulse Oximetry 97 97 94 L 03/27/18 20:00 03/27/18 21:00 03/27/18 22:00 Temperature Pulse Rate 80 82 92 H Respiratory Rate Blood Pressure Pulse Oximetry 94 L 03/27/18 23:00 03/28/18 00:00 03/28/18 01:00 Temperature 98.6 F Pulse Rate 85 90 86 Respiratory Rate 20 Blood Pressure 109/52 L Pulse Oximetry 93 L 03/28/18 02:00 03/28/18 03:00 03/28/18 04:00 Temperature 98.9 F Pulse Rate 90 82 72 Respiratory Rate 20 Blood Pressure 122/59 L Pulse Oximetry 94 L 03/28/18 05:00 03/28/18 06:00 03/28/18 07:00 Temperature 98.2 F Pulse Rate 71 74 75 Respiratory Rate 18 Blood Pressure 127/60 Pulse Oximetry 95 03/28/18 07:50 03/28/18 08:00 03/28/18 09:00 Temperature Pulse Rate 64 78 79 Respiratory Rate 18 Blood Pressure Pulse Oximetry 98 95 03/28/18 10:00 03/28/18 11:00 03/28/18 12:00 Temperature 98.3 F Pulse Rate 74 74 76 Respiratory Rate 20 Blood Pressure 113/59 L Pulse Oximetry 93 L 03/28/18 13:00 03/28/18 13:27 Temperature Pulse Rate 75 75 Respiratory Rate 20 Blood Pressure Pulse Oximetry GENERAL: A&O x 3 SKIN: Warm and dry. prevena dressing to chest HEAD: Normocephalic. EYES: No scleral icterus. No injection or drainage. NECK: Supple, trachea midline. No JVD or lymphadenopathy. CARDIOVASCULAR: Regular rate and rhythm without murmurs, gallops, or rubs. RESPIRATORY: Breath sounds equal bilaterally. No accessory muscle use. diminished in bases , few crackles / chest tube dc GASTROINTESTINAL: Abdomen soft, non-tender, nondistended. MUSCULOSKELETAL: No cyanosis, or edema. BACK: Nontender without obvious deformity. No CVA tenderness. Labs: Laboratory Results - last 12 hr 03/28/18 03/28/18 03/28/18 03:42 04:20 04:20 WBC 15.9 H RBC 2.50 L Hgb 8.5 L Hct 24.9 L MCV 99.2 MCH 33.8 MCHC 34.1 RDW 13.0 Plt Count 83 L MPV 9.7 Prelim Diff (Auto) Slide review pending Neut % (Auto) 83.5 H Lymph % (Auto) 4.5 L [place] % (Auto) 12.0 H Eos % (Auto) 0.0 Baso % (Auto) 0.0 Neut # (Auto) 13.3 H Lymph # (Auto) 0.7 L [place] # (Auto) 1.9 H Eos # (Auto) 0.0 Baso # (Auto) 0.0 WBC Differential Manual diff final Seg Neuts % (Manual) 69 Band Neuts % (Manual) 10 H Lymphocytes % (Manual) 10 Monocytes % (Manual) 11 H Abs Neuts (Manual) 12.6 H Differential Comment . Platelet Estimate Low L Platelet Morphology Normal Basophilic Stippling Faint H Ovalocytes 1+ H Sodium 141 Potassium 4.6 D Chloride 105 Carbon Dioxide 28.8 Anion Gap 7 BUN 28 H Creatinine 0.85 Estimated GFR 88 L POC Glucose 102 Random Glucose 98 Calcium 8.4 L Magnesium 2.3 03/28/18 03/28/18 03/28/18 06:09 08:16 11:40 WBC RBC Hgb Hct MCV MCH MCHC RDW Plt Count MPV Prelim Diff (Auto) Neut % (Auto) Lymph % (Auto) [place] % (Auto) Eos % (Auto) Baso % (Auto) Neut # (Auto) Lymph # (Auto) [place] # (Auto) Eos # (Auto) Baso # (Auto) WBC Differential Seg Neuts % (Manual) Band Neuts % (Manual) Lymphocytes % (Manual) Monocytes % (Manual) Abs Neuts (Manual) Differential Comment Platelet Estimate Platelet Morphology Basophilic Stippling Ovalocytes Sodium Potassium Chloride Carbon Dioxide Anion Gap BUN Creatinine Estimated GFR POC Glucose 125 H 128 H 138 H Random Glucose Calcium Magnesium Result Diagrams: 03/28/18 04:20 03/28/18 04:20 - Plan (4) S/P AVR (aortic valve replacement) Plan: on ASA, resume xarelto, dc plavix hold on starting BB for now HR 70 , on amiodarone Pulm toileting nebs , ezpap eval for reahb at discharge (6) S/P mitral valve repair Plan: ASA OOB , ambulate pulm toileting eval for rehab (8) Atrial fibrillation Plan: resume xarelto (9) Acute blood loss as cause of postoperative anemia Plan: monitor labs start iron supplement
--- NOTE | 2018-03-28 21:45 | XR ---
EXAM DATE: 03/28/2018 9:40 PM EDT AGE/SEX: 77 years / Male INDICATIONS: Evaluate for pneumonia, pneumothorax, or communicable disease. Pre-op, cardiac surgery. CLINICAL DATA: This is the patient's initial encounter. Patient reports that signs and symptoms have been present for 1 day and indicates a pain score of 0/10. MEDICAL/SURGICAL HISTORY: None. CABG. [place] [facility] [place]. . FINDINGS: Interval removal of left subclavian catheter and mediastinal drains. There is a stable small left api kei pneumothorax. There is a small left pleural effusion with mild patchy bilateral lower lobe airspa ce consolidation. Cardiomegaly mediastinal contours are stable. Postsurgical features of median [place] otomy with cardiac valve replacement. Remainder of the exam is unchanged. CONCLUSION: 1. Stable small left apical pneumothorax. 2. Persistent mild patchy bilateral lower lobe airspace consolidation and trace left pleural effusio n. Electronically signed by: Adarsh Bob MD 03/28/2018 9:43 PM EDT
[2018-03-29 04:28] LABS: Eos % (Auto) 0.1 % (0.0-4.0); Hematocrit 24.9 % (39.0-51.0); Hemoglobin 8.7 gm/dL (13.0-17.0); Lymph # (Auto) 0.9 th/mm3 (1.0-4.8); Lymph % (Auto) 7.3 % (9.0-44.0); Mean Corpuscular Hemoglobin 34.6 pg (27.0-34.0); Mean Corpuscular Volume 98.8 fL (80.0-100.0); Mean Platelet Volume 8.9 fL (7.0-11.0); Mono # (Auto) 1.7 th/mm3 (0.0-0.9); Mono % (Auto) 13.4 % (0.0-8.0); Neut # (Auto) 10.1 th/mm3 (1.8-7.7); Neut % (Auto) 79.2 % (16.0-70.0); Platelet Count 99 th/mm3 (150-450); Red Blood Count 2.52 mil/mm3 (4.50-5.90); Red Cell Distribution Width 13.2 % (11.6-17.2); White Blood Count 12.7 th/mm3 (4.0-11.0)
[2018-03-29 04:56] LABS: Ovalocytes 1+; Platelet Morphology Normal (Normal)
[2018-03-29 04:58] LABS: Anion Gap 5 meq/L (5-15); Blood Urea Nitrogen 21 mg/dL (7-18); Calcium 7.9 mg/dL (8.5-10.1); Carbon Dioxide 31.1 meq/L (21.0-32.0); Chloride 106 meq/L (98-107); Glomerular Filtration Rate Greater Than 89 mL/min (>89); Glucose,Random 101 mg/dL (74-106); Potassium 4.5 meq/L (3.5-5.1); Sodium 142 meq/L (136-145)
[2018-03-29] MEDS ORDERED: Sod Phosphate/Sod Biphosphate (Adult) Enema 133 ML Bottle RECTAL PRN (06:00)
[2018-03-29] MEDS: Multivitamin/Minerals Therapeutic Tablet PO SCH (08:20)
[2018-03-29] MEDS: Polyethylene Glycol 3350 17 GM Packet PO SCH (08:20)
[2018-03-29] MEDS: Docusate Sodium 100 MG Capsule PO SCH ×2 (08:20→21:14)
[2018-03-29] MEDS: Rivaroxaban 10 MG Tablet PO SCH (08:20)
[2018-03-29] MEDS: Insulin NovoLOG Aspart Correctional Sugar Inj SQ SCH ×4 (08:21→21:26)
--- NOTE | 2018-03-29 08:38 | P.PNCV ---
- Note Subjective/Hospital Course: 77/ male hx of afib with ablation 2 years ago, with increased SOB with exertion , workup included ECHO , cath and NAT. Results showed severe Aortic insuff, mod -severe MR, Moderate TR other HX : HLP HTN pt electively admitted surgery 03/26 SURGICAL PROCEDURE 1. Aortic Valve Replacement with 23mm Medtronic Mosaic Tissue Valve 2. Mitral Valve Repair with 28mm Profile 3D Annuloplasty Ring 3. Tricuspid Valve Repair with 28mm Contour 3D Annuloplasty Ring pt extubated after surgery CCT 178min crystalloid 2000cc, 500cc cell saver 03/27 pt off all IV gtts BP stable , HR 70 1st degree AV block continue amiodarone , hold on BB for now OOB to chair stable to transfer to stepdown resume xarelto after chest tube dc pt requesting rehab at discharge 03/28 pt on room air chest tube dc without difficulty will also dc CVC line and resume xarelto remains in NSR for rehab at discharge 03/29 Clinically and hemodynamically stable Ambulate Discharge planning Objective: Vital Signs - 24 hr 03/28/18 09:00 03/28/18 10:00 03/28/18 11:00 Temperature 98.3 F Pulse Rate 79 74 74 Respiratory Rate 20 Blood Pressure 113/59 L Pulse Oximetry 93 L 03/28/18 12:00 03/28/18 13:00 03/28/18 13:27 Temperature Pulse Rate 76 75 75 Respiratory Rate 20 Blood Pressure Pulse Oximetry 03/28/18 14:00 03/28/18 15:00 03/28/18 16:00 Temperature 98.2 F Pulse Rate 81 76 70 Respiratory Rate 18 Blood Pressure 117/56 L Pulse Oximetry 91 L 03/28/18 19:00 03/28/18 20:00 03/28/18 20:25 Temperature 98.3 F Pulse Rate 79 82 72 Respiratory Rate 22 24 Blood Pressure 119/55 L Pulse Oximetry 90 L 94 L 03/28/18 21:00 03/28/18 22:00 03/28/18 23:00 Temperature 98.4 F Pulse Rate 74 70 70 Respiratory Rate 20 Blood Pressure 120/56 L Pulse Oximetry 98 03/29/18 00:00 03/29/18 01:00 03/29/18 02:00 Temperature Pulse Rate 70 66 75 Respiratory Rate Blood Pressure Pulse Oximetry 03/29/18 03:00 03/29/18 04:00 03/29/18 05:00 Temperature 97.4 F L Pulse Rate 67 61 68 Respiratory Rate 20 Blood Pressure 122/56 L Pulse Oximetry 97 03/29/18 06:00 03/29/18 07:00 03/29/18 08:00 Temperature 98 F Pulse Rate 70 64 62 Respiratory Rate 16 Blood Pressure 119/60 Pulse Oximetry 97 98 Labs: Laboratory Results - last 12 hr 03/26/18 03/28/18 03/29/18 06:10 20:36 04:07 WBC 12.7 H RBC 2.52 L Hgb 8.7 L Hct 24.9 L MCV 98.8 MCH 34.6 H MCHC 35.0 RDW 13.2 Plt Count 99 L MPV 8.9 Prelim Diff (Auto) Slide review pending Neut % (Auto) 79.2 H Lymph % (Auto) 7.3 L [place] % (Auto) 13.4 H Eos % (Auto) 0.1 Baso % (Auto) 0.0 Neut # (Auto) 10.1 H Lymph # (Auto) 0.9 L [place] # (Auto) 1.7 H Eos # (Auto) 0.0 Baso # (Auto) 0.0 WBC Differential . Diff Scan Auto diff confirmed Differential Comment . Platelet Estimate Low L Platelet Morphology Normal Ovalocytes 1+ H Sodium Potassium Chloride Carbon Dioxide Anion Gap BUN Creatinine Estimated GFR POC Glucose 99 Random Glucose Calcium MTS Gel Crossmatch See Detail 03/29/18 03/29/18 04:07 07:58 WBC RBC Hgb Hct MCV MCH MCHC RDW Plt Count MPV Prelim Diff (Auto) Neut % (Auto) Lymph % (Auto) [place] % (Auto) Eos % (Auto) Baso % (Auto) Neut # (Auto) Lymph # (Auto) [place] # (Auto) Eos # (Auto) Baso # (Auto) WBC Differential Diff Scan Differential Comment Platelet Estimate Platelet Morphology Ovalocytes Sodium 142 Potassium 4.5 Chloride 106 Carbon Dioxide 31.1 Anion Gap 5 BUN 21 H Creatinine 0.81 Estimated GFR Greater than 89 POC Glucose 99 Random Glucose 101 Calcium 7.9 L MTS Gel Crossmatch Result Diagrams: 03/29/18 04:07 03/29/18 04:07 - Plan (4) S/P AVR (aortic valve replacement) Plan: on ASA, resume xarelto, dc plavix hold on starting BB for now HR 70 , on amiodarone Pulm toileting nebs , ezpap eval for reahb at discharge (6) S/P mitral valve repair Plan: ASA OOB , ambulate pulm toileting eval for rehab (8) Atrial fibrillation Plan: resume xarelto (9) Acute blood loss as cause of postoperative anemia Plan: monitor labs start iron supplement
[2018-03-29] MEDS: Ferrous Sulfate 325 MG Tablet PO SCH (21:14)
--- NOTE | 2018-03-30 | ECG ---
Date Performed: 03/29/2018 Time Performed: 07:57:14 PTAGE: 77 years EKG: Atrial fibrillation. Anterior T wave changes are nonspecific Abnormal ECG PREVIOUS TRACING : 03/27/2018 04.00 DOCTOR: Cullen Fry Interpretating Date/Time 03/29/2018 23:59:24
[2018-03-30] MEDS: Insulin NovoLOG Aspart Correctional Sugar Inj SQ SCH (07:48)
[2018-03-30] MEDS: Rivaroxaban 10 MG Tablet PO SCH (09:06)
[2018-03-30] MEDS: Docusate Sodium 100 MG Capsule PO SCH ×2 (09:07→20:35)
[2018-03-30] MEDS: Ferrous Sulfate 325 MG Tablet PO SCH ×2 (09:07→20:35)
[2018-03-30] MEDS: Multivitamin/Minerals Therapeutic Tablet PO SCH (09:07)
[2018-03-30] MEDS: Polyethylene Glycol 3350 17 GM Packet PO SCH (09:08)
--- NOTE | 2018-03-30 09:27 | P.PNCV ---
- Note Subjective/Hospital Course: 77/ male hx of afib with ablation 2 years ago, with increased SOB with exertion , workup included ECHO , cath and NAT. Results showed severe Aortic insuff, mod -severe MR, Moderate TR other HX : HLP HTN pt electively admitted surgery 03/26 SURGICAL PROCEDURE 1. Aortic Valve Replacement with 23mm Medtronic Mosaic Tissue Valve 2. Mitral Valve Repair with 28mm Profile 3D Annuloplasty Ring 3. Tricuspid Valve Repair with 28mm Contour 3D Annuloplasty Ring pt extubated after surgery CCT 178min crystalloid 2000cc, 500cc cell saver 03/27 pt off all IV gtts BP stable , HR 70 1st degree AV block continue amiodarone , hold on BB for now OOB to chair stable to transfer to stepdown resume xarelto after chest tube dc pt requesting rehab at discharge 03/28 pt on room air chest tube dc without difficulty will also dc CVC line and resume xarelto remains in NSR for rehab at discharge 03/29 Clinically and hemodynamically stable Ambulate Discharge planning 03/30 Doing well on room air Eager to be discharged Awaiting rehab assessment Objective: Vital Signs - 24 hr 03/29/18 10:00 03/29/18 11:00 03/29/18 12:00 Temperature Pulse Rate 72 85 78 Respiratory Rate Blood Pressure Pulse Oximetry 03/29/18 12:01 03/29/18 13:00 03/29/18 14:00 Temperature 97.9 F Pulse Rate 79 74 70 Respiratory Rate 16 Blood Pressure 133/61 Pulse Oximetry 92 L 03/29/18 14:39 03/29/18 15:00 03/29/18 16:00 Temperature 97.7 F Pulse Rate 75 72 68 Respiratory Rate 16 Blood Pressure 123/57 L Pulse Oximetry 92 L 03/29/18 17:00 03/29/18 18:00 03/29/18 19:00 Temperature 97.5 F L Pulse Rate 74 74 80 Respiratory Rate 20 Blood Pressure 122/58 L Pulse Oximetry 91 L 03/29/18 20:00 03/29/18 21:00 03/29/18 22:00 Temperature Pulse Rate 68 66 70 Respiratory Rate Blood Pressure Pulse Oximetry 95 03/29/18 23:00 03/30/18 00:00 03/30/18 01:00 Temperature 98.6 F Pulse Rate 65 64 74 Respiratory Rate 20 Blood Pressure 112/79 Pulse Oximetry 94 L 03/30/18 02:00 03/30/18 03:00 03/30/18 04:00 Temperature 98.4 F Pulse Rate 66 60 63 Respiratory Rate 20 Blood Pressure 138/60 Pulse Oximetry 96 03/30/18 05:00 03/30/18 06:00 03/30/18 07:00 Temperature 98.3 F Pulse Rate 54 L 74 67 Respiratory Rate 20 Blood Pressure 135/63 Pulse Oximetry 95 03/30/18 08:00 03/30/18 09:00 Temperature Pulse Rate 77 72 Respiratory Rate Blood Pressure Pulse Oximetry 95 Labs: Laboratory Results - last 12 hr 03/29/18 03/30/18 21:23 07:42 POC Glucose 123 H 92 Result Diagrams: 03/29/18 04:07 03/29/18 04:07 - Plan (4) S/P AVR (aortic valve replacement) Plan: on ASA, resume xarelto, dc plavix hold on starting BB for now HR 70 , on amiodarone Pulm toileting nebs , ezpap eval for reahb at discharge (6) S/P mitral valve repair Plan: ASA OOB , ambulate pulm toileting eval for rehab (8) Atrial fibrillation Plan: resume xarelto (9) Acute blood loss as cause of postoperative anemia Plan: monitor labs start iron supplement
--- NOTE | 2018-03-30 09:41 | P.PNCV ---
- Note Subjective/Hospital Course: 77/ male hx of afib with ablation 2 years ago, with increased SOB with exertion , workup included ECHO , cath and NAT. Results showed severe Aortic insuff, mod -severe MR, Moderate TR other HX : HLP HTN pt electively admitted surgery 03/26 SURGICAL PROCEDURE 1. Aortic Valve Replacement with 23mm Medtronic Mosaic Tissue Valve 2. Mitral Valve Repair with 28mm Profile 3D Annuloplasty Ring 3. Tricuspid Valve Repair with 28mm Contour 3D Annuloplasty Ring pt extubated after surgery CCT 178min crystalloid 2000cc, 500cc cell saver 03/27 pt off all IV gtts BP stable , HR 70 1st degree AV block continue amiodarone , hold on BB for now OOB to chair stable to transfer to stepdown resume xarelto after chest tube dc pt requesting rehab at discharge 03/28 pt on room air chest tube dc without difficulty will also dc CVC line and resume xarelto remains in NSR for rehab at discharge 03/29 Clinically and hemodynamically stable Ambulate Discharge planning 03/30 Doing well on room air Eager to be discharged Awaiting rehab assessment EFORCSE queried Objective: Vital Signs - 24 hr 03/29/18 10:00 03/29/18 11:00 03/29/18 12:00 Temperature Pulse Rate 72 85 78 Respiratory Rate Blood Pressure Pulse Oximetry 03/29/18 12:01 03/29/18 13:00 03/29/18 14:00 Temperature 97.9 F Pulse Rate 79 74 70 Respiratory Rate 16 Blood Pressure 133/61 Pulse Oximetry 92 L 03/29/18 14:39 03/29/18 15:00 03/29/18 16:00 Temperature 97.7 F Pulse Rate 75 72 68 Respiratory Rate 16 Blood Pressure 123/57 L Pulse Oximetry 92 L 03/29/18 17:00 03/29/18 18:00 03/29/18 19:00 Temperature 97.5 F L Pulse Rate 74 74 80 Respiratory Rate 20 Blood Pressure 122/58 L Pulse Oximetry 91 L 03/29/18 20:00 03/29/18 21:00 03/29/18 22:00 Temperature Pulse Rate 68 66 70 Respiratory Rate Blood Pressure Pulse Oximetry 95 03/29/18 23:00 03/30/18 00:00 03/30/18 01:00 Temperature 98.6 F Pulse Rate 65 64 74 Respiratory Rate 20 Blood Pressure 112/79 Pulse Oximetry 94 L 03/30/18 02:00 03/30/18 03:00 03/30/18 04:00 Temperature 98.4 F Pulse Rate 66 60 63 Respiratory Rate 20 Blood Pressure 138/60 Pulse Oximetry 96 03/30/18 05:00 03/30/18 06:00 03/30/18 07:00 Temperature 98.3 F Pulse Rate 54 L 74 67 Respiratory Rate 20 Blood Pressure 135/63 Pulse Oximetry 95 03/30/18 08:00 03/30/18 09:00 Temperature Pulse Rate 77 72 Respiratory Rate Blood Pressure Pulse Oximetry 95 Labs: Laboratory Results - last 12 hr 03/30/18 07:42 POC Glucose 92 Result Diagrams: 03/29/18 04:07 03/29/18 04:07 - Plan (4) S/P AVR (aortic valve replacement) Plan: on ASA, resume xarelto, dc plavix hold on starting BB for now HR 70 , on amiodarone Pulm toileting nebs , ezpap eval for reahb at discharge (6) S/P mitral valve repair Plan: ASA OOB , ambulate pulm toileting eval for rehab (8) Atrial fibrillation Plan: resume xarelto (9) Acute blood loss as cause of postoperative anemia Plan: monitor labs start iron supplement
--- NOTE | 2018-03-30 09:46 | P.DS ---
Date of admission: 03/26/18 07:29 Primary care physician: Jose Valdez MD Attending physician on discharge: Obie Mathis Anticipated date of discharge: 03/30/18 Brief History from admission: 77/ male hx of afib with ablation 2 years ago, with increased SOB with exertion , workup included ECHO , cath and NAT. Results showed severe Aortic insuff, mod -severe MR, Moderate TR other HX : HLP HTN pt electively admitted surgery 03/26 DS: Diagnosis - Discharge Diagnosis (1) Aortic insufficiency Status: Acute (2) Tricuspid regurgitation Status: Acute (3) Mitral regurgitation Status: Acute (4) S/P AVR (aortic valve replacement) Status: Acute (5) Status post tricuspid valve repair Status: Acute (6) S/P mitral valve repair Status: Acute (7) Hypertension Status: Acute (8) Atrial fibrillation Status: Acute (9) Acute blood loss as cause of postoperative anemia Status: Acute DS: Medications - Discharge Medications Prescriptions: hydrocodone-acetaminophen 1 tab PO Q3H PRN 7 Days #40 tab PRN Reason: Pain Scale 1 To 5 DS: Summary Hospital Course: 77/ male hx of afib with ablation 2 years ago, with increased SOB with exertion , workup included ECHO , cath and NAT. Results showed severe Aortic insuff, mod -severe MR, Moderate TR other HX : HLP HTN pt electively admitted surgery 03/26 SURGICAL PROCEDURE 1. Aortic Valve Replacement with 23mm Medtronic Mosaic Tissue Valve 2. Mitral Valve Repair with 28mm Profile 3D Annuloplasty Ring 3. Tricuspid Valve Repair with 28mm Contour 3D Annuloplasty Ring pt extubated after surgery CCT 178min crystalloid 2000cc, 500cc cell saver 03/27 pt off all IV gtts BP stable , HR 70 1st degree AV block continue amiodarone , hold on BB for now OOB to chair stable to transfer to stepdown resume xarelto after chest tube dc pt requesting rehab at discharge 03/28 pt on room air chest tube dc without difficulty will also dc CVC line and resume xarelto remains in NSR for rehab at discharge 03/29 Clinically and hemodynamically stable Ambulate Discharge planning 03/30 Doing well on room air Eager to be discharged Awaiting rehab assessment - Time Spent with Patient Total time spent providing and/or coordinating discharge services: Greater than 30 minutes - Quality: VTE Deep Vein Thrombosis/Pulmonary Embolism Present on Admission: No Exam Vital signs: Vital Signs 03/29/18 10:00 03/29/18 11:00 03/29/18 12:00 Temperature Pulse Rate 72 85 78 Respiratory Rate Blood Pressure Pulse Oximetry 03/29/18 12:01 03/29/18 13:00 03/29/18 14:00 Temperature 97.9 F Pulse Rate 79 74 70 Respiratory Rate 16 Blood Pressure 133/61 Pulse Oximetry 92 L 03/29/18 14:39 03/29/18 15:00 03/29/18 16:00 Temperature 97.7 F Pulse Rate 75 72 68 Respiratory Rate 16 Blood Pressure 123/57 L Pulse Oximetry 92 L 03/29/18 17:00 03/29/18 18:00 03/29/18 19:00 Temperature 97.5 F L Pulse Rate 74 74 80 Respiratory Rate 20 Blood Pressure 122/58 L Pulse Oximetry 91 L 03/29/18 20:00 03/29/18 21:00 03/29/18 22:00 Temperature Pulse Rate 68 66 70 Respiratory Rate Blood Pressure Pulse Oximetry 95 03/29/18 23:00 03/30/18 00:00 03/30/18 01:00 Temperature 98.6 F Pulse Rate 65 64 74 Respiratory Rate 20 Blood Pressure 112/79 Pulse Oximetry 94 L 03/30/18 02:00 03/30/18 03:00 03/30/18 04:00 Temperature 98.4 F Pulse Rate 66 60 63 Respiratory Rate 20 Blood Pressure 138/60 Pulse Oximetry 96 03/30/18 05:00 03/30/18 06:00 03/30/18 07:00 Temperature 98.3 F Pulse Rate 54 L 74 67 Respiratory Rate 20 Blood Pressure 135/63 Pulse Oximetry 95 03/30/18 08:00 03/30/18 09:00 Temperature Pulse Rate 77 72 Respiratory Rate Blood Pressure Pulse Oximetry 95 Intake & Output 03/29/18 03/30/18 03/30/18 18:59 06:59 18:59 Intake Total 960 / 960 Output Total 720 / 720 125 / 125 Balance 240 / 240 -125 / -125 Weight 48.5 kg Intake: Oral 960 / 960 Output: Urine 720 / 720 125 / 125 Other: # Voids 1 Date of Last Bowel Movement 03/28/18 03/28/18 03/28/18 - Constitutional no acute distress - Routine HEENT Exam Head: Present: normocephalic, atraumatic Eye: Present: EOMI, PERRL - Routine Neck Exam Present: supple, full ROM. Absent: JVD, carotid bruit - Routine Chest/Breast/Axilla Exam Chest wall: Present: tenderness. Absent: chest tube Comments: incisional tenderness - Routine Respiratory Exam Present: CTA bilaterally - Routine Cardiovascular Exam Present: RRR, S1, S2. Absent: murmur, gallop, rubs - Routine Abdominal Exam Present: soft, normoactive bowel sounds. Absent: tenderness, distended - Routine Extremities Exam Present: full ROM, pulses intact. Absent: cyanosis, clubbing, edema - Routine Neurological Exam Present: alert, oriented X3, CN II-XII intact Results Procedures completed during hospitalization: SURGICAL PROCEDURE 1. Aortic Valve Replacement with 23mm Medtronic Mosaic Tissue Valve 2. Mitral Valve Repair with 28mm Profile 3D Annuloplasty Ring 3. Tricuspid Valve Repair with 28mm Contour 3D Annuloplasty Ring Completed studies during hospitalization: Pending at discharge 03/26/18 14:49 Surgical [PTH] Routine Labs on day of discharge: Labs from last 24 hours 03/30/18 03/29/18 03/29/18 07:42 21:23 16:37 POC Glucose 92 123 H 130 H 03/29/18 12:00 POC Glucose 111 H - Impressions ITS Impressions Chest X-Ray 03/28/18 14:22 CONCLUSION: 1. Stable small left apical pneumothorax. 2. Persistent mild patchy bilateral lower lobe airspace consolidation and trace left pleural effusion. Discharge Plan - Discharge Disposition Patient Disposition: 64 Rehab Inpatient - Discharge Condition Condition: Good - Discharge Order Discharge Orders: Discharge Order (Routine); Ordered 03/30/18 Ordered By: Obie Mathis - Discharge Details Anticipated Discharge Date: 03/30/18 - Physicians Team Primary Care Provider: Jose Valdez Attending Provider: Obie Mathis Other Providers: Audrey Ventura ; [facility] ; [facility] - Rxs /Orders / Referrals /Forms Prescriptions: New aspirin 81 mg Tablet,Chewable 81 mg PO DAILY RF: 0 docusate sodium [DOK] 100 mg Capsule 100 mg PO BID RF: 0 ferrous sulfate [FeroSul] 325 mg (65 mg iron) Tablet 325 mg PO BID RF: 0 hydrocodone-acetaminophen 5-325 mg Tablet 1 tab PO Q3H PRN (Reason: Pain Scale 1 To 5) 7 Days Qty: 40 RF: 0 Continue atorvastatin [Lipitor] 40 mg Tablet 40 mg PO DAILY omega 3-xqp-rbt-fish oil [Fish Oil] 1,000 mg (120 mg-180 mg) Capsule 1 tab PO BID pantoprazole [Protonix] 40 mg Tablet,Delayed Release (Dr/Ec) 40 mg PO DAILY rivaroxaban [Xarelto] 10 mg Tablet 10 mg PO DAILY Discontinued lisinopril 40 mg Tablet 40 mg PO DAILY Referrals: NIYAH ARAUJO DR [Other] - See Instructions ( Your appointment has been scheduled for [05/01/18] at [9:45 AM] If you cannot make this appointment, please call the office to reschedule ) Jose Valdez MD [Primary Care Provider] - See Instructions ( Your appointment has been scheduled for [04/14/18] at [8:45 AM] If you cannot make this appointment, please call the office to reschedule ) Shobha Sanders [ADVANCE RN PRACTITIONER] - See Instructions ( Your appointment has been scheduled for [04/15/18] at [11:30 AM] If you cannot make this appointment, please call the office to reschedule ) - Discharge Instructions Additional Instructions: PREVENA Single Use Negative Wound Therapy System Caregiver Instruction Sheet 1. A Prevena dressing system was applied to the chest incision during surgery , to promote wound healing. It works via a suction device (negative pressure wound therapy) to remove low to moderate levels of exudate (drainage) and infectious materials. We recommend that the device stay in place for up to seven days, from day of surgery. 2. Day of Surgery___03/26/18 Day of Removal ____04/02/18 3. The dressing should only be removed by a health critical care rn. Please arrange removal of device to coincide with Home Health visit and or with Nursing staff at Rehab 4. If skin reddening or irritation of skin occurs, or excessive drainage, please notify the Cardiovascular Surgeons office at [phone]. 5. Light showering is permissible; however the pump should be disconnected and placed in safe location, where it will not get wet. The dressing should not be exposed to direct spray or submerged in water. No bath tub / shower only. Ensure the end of the tubing attached to the dressing is facing down so that water does not enter the top of the tube. 6. To remove Prevena dressing: press purple button to turn off device / remove the suction. Then disconnect the tubing from the pump. The fixation strips should be stretched away from the skin and the dressing lifted at one corner and peeled back until it has been fully removed. 7. After removal, it is ok to shower daily using liquid dial soap and clean wash cloth, rinse and pat dry, and leave incision open to air dry. For any concerns regarding Prevena dressing, and or wounds, please contact Shanti Solomon, patient navigator at [phone] or notify the Cardiovascular Surgeons office at [phone]. Incentive spirometry Q1 hr x 10, while awake, also use acapella device hourly whole awake Sternal Breast Bone Precautions: NO pushing or pulling, ( pt must use sternal pillow to support chest with all activities and with coughing ( takes up to 3 months breast bone to heal ) Daily incision care: ok to shower daily, no tub bath. Wash all incisions with liquid dial soap, clean wash cloth to each site, rinse and pat dry. Observe for any signs of infection, such as drainage which is dark yellow, barker, green or foul smelling. Immediately report to the surgeon any drainage from the chest incision, or legs, and for any abnormal drainage from the chest tube sites. Notify surgeon if any temp >101.5 degrees F. When specialty dressing removed/ or if you do not have one, continue to shower daily as above, then rinse and pat incision dry and paint with betadine daily x 5 days. Allow steri strips to fall off if you have any. Avoid lotions, creams, salves, oils, etc. for the first month Please see attached forms for additional instructions regarding post Open Heart specialty wound vacuum dressings. SILVINA or Prevena , Dressing to be removed by Nursing staff on _04/02/18 F/U appointment: as per DC instructions: PCP in 2 weeks, CV surgeon 2 weeks, Patient Services Coordinator 3-4 weeks For any questions regarding incisions/ dressing / meds / post op care or above Symptoms, Saturday 8am-5pm Heart & Vascular Surgery Office ( Dr. Mathis & Dr. Cobos), After Hours / Nights (5pm -8am) Weekends and Holidays Please call [facility] ([facility]) Charge Nurse
[2018-03-31] MEDS: Rivaroxaban 10 MG Tablet PO SCH (09:05)
[2018-03-31] MEDS: Ferrous Sulfate 325 MG Tablet PO SCH ×2 (09:06→21:15)
[2018-03-31] MEDS: Polyethylene Glycol 3350 17 GM Packet PO SCH (09:06)
[2018-03-31] MEDS: Multivitamin/Minerals Therapeutic Tablet PO SCH (09:06)
[2018-03-31] MEDS: Docusate Sodium 100 MG Capsule PO SCH ×2 (09:06→21:15)
--- NOTE | 2018-03-31 10:39 | P.PNCV ---
- Note Subjective/Hospital Course: 77/ male hx of afib with ablation 2 years ago, with increased SOB with exertion , workup included ECHO , cath and NAT. Results showed severe Aortic insuff, mod -severe MR, Moderate TR other HX : HLP HTN pt electively admitted surgery 03/26 SURGICAL PROCEDURE 1. Aortic Valve Replacement with 23mm Medtronic Mosaic Tissue Valve 2. Mitral Valve Repair with 28mm Profile 3D Annuloplasty Ring 3. Tricuspid Valve Repair with 28mm Contour 3D Annuloplasty Ring pt extubated after surgery CCT 178min crystalloid 2000cc, 500cc cell saver 03/27 pt off all IV gtts BP stable , HR 70 1st degree AV block continue amiodarone , hold on BB for now OOB to chair stable to transfer to stepdown resume xarelto after chest tube dc pt requesting rehab at discharge 03/28 pt on room air chest tube dc without difficulty will also dc CVC line and resume xarelto remains in NSR for rehab at discharge 03/29 Clinically and hemodynamically stable Ambulate Discharge planning 03/30 Doing well on room air Eager to be discharged Awaiting rehab assessmen EFORCSE queried 03/31 pt stable for dc , waiting on rehab bed Objective: Vital Signs - 24 hr 03/30/18 11:00 03/30/18 12:00 03/30/18 13:00 Temperature 98.5 F Pulse Rate 87 77 79 Respiratory Rate 20 Blood Pressure 124/58 L Pulse Oximetry 96 03/30/18 14:00 03/30/18 15:00 03/30/18 16:00 Temperature 98.6 F Pulse Rate 63 68 70 Respiratory Rate 18 Blood Pressure 134/62 Pulse Oximetry 96 03/30/18 17:00 03/30/18 18:00 03/30/18 19:00 Temperature 98.0 F Pulse Rate 64 68 81 Respiratory Rate 16 Blood Pressure 145/69 H Pulse Oximetry 93 L 03/30/18 20:00 03/30/18 21:00 03/30/18 22:00 Temperature Pulse Rate 72 73 80 Respiratory Rate Blood Pressure Pulse Oximetry 95 03/30/18 23:00 03/30/18 23:15 03/31/18 00:00 Temperature 99 F Pulse Rate 75 71 Respiratory Rate 18 Blood Pressure 149/63 H Pulse Oximetry 93 L 93 L 03/31/18 01:00 03/31/18 02:00 03/31/18 03:00 Temperature 98.5 F Pulse Rate 81 74 64 Respiratory Rate 16 Blood Pressure 146/72 H Pulse Oximetry 94 L 03/31/18 04:00 03/31/18 05:00 03/31/18 05:58 Temperature Pulse Rate 79 76 72 Respiratory Rate Blood Pressure Pulse Oximetry 03/31/18 07:00 03/31/18 08:00 03/31/18 09:00 Temperature 98 F Pulse Rate 73 79 82 Respiratory Rate 16 Blood Pressure 143/63 H Pulse Oximetry 96 03/31/18 09:46 03/31/18 09:53 Temperature Pulse Rate 86 Respiratory Rate Blood Pressure Pulse Oximetry 93 L GENERAL: A&O x 3 SKIN: Warm and dry. prevena dressing to chest HEAD: Normocephalic. EYES: No scleral icterus. No injection or drainage. NECK: Supple, trachea midline. No JVD or lymphadenopathy. CARDIOVASCULAR: Regular rate and rhythm without murmurs, gallops, or rubs. RESPIRATORY: Breath sounds equal bilaterally. No accessory muscle use. GASTROINTESTINAL: Abdomen soft, non-tender, nondistended. MUSCULOSKELETAL: No cyanosis, or edema. BACK: Nontender without obvious deformity. No CVA tenderness. Result Diagrams: 03/29/18 04:07 03/29/18 04:07 - Plan (4) S/P AVR (aortic valve replacement) Plan: on ASA, resume xarelto, no BB with recent bradycardia HR 50-60 no amiodarone Pulm toileting nebs , ezpap stable for discharge (6) S/P mitral valve repair Plan: ASA OOB , ambulate pulm toileting eval for rehab (8) Atrial fibrillation Plan: resume xarelto (9) Acute blood loss as cause of postoperative anemia Plan: monitor labs start iron supplement
[2018-04-01 08:21] VITALS: RESP 20
--- NOTE | 2018-04-01 09:34 | XR ---
EXAM DATE: 04/01/2018 9:18 AM EDT AGE/SEX: 77 years / Male INDICATIONS: Chest tube removal. Evaluate for pneumothorax. CLINICAL DATA: This is the patient's subsequent encounter. Patient reports that signs and symptoms h ave been present for 4 - 6 days and indicates a pain score of 0/10. MEDICAL/SURGICAL HISTORY: None. CABG. COMPARISON: [facility] [place], CHEST 2V PA&LAT, 03/28/2018. . FINDINGS: A single AP view of the chest demonstrates small left pleural effusion and bibasilar densities. Heart valve replacement. Minimal lucency medially in the left hemithorax. The cardiomediastinal contours a re unremarkable. Osseous structures are intact. CONCLUSION: 1. Small left pleural effusion and bibasilar densities. 2. Minimal lucency medially in the left lung could be a small pneumothorax. Electronically signed by: Sam Oleary MD 04/01/2018 9:32 AM EDT
[2018-04-01] MEDS: Docusate Sodium 100 MG Capsule PO SCH (10:17)
[2018-04-01] MEDS: Multivitamin/Minerals Therapeutic Tablet PO SCH (10:17)
[2018-04-01] MEDS: Rivaroxaban 10 MG Tablet PO SCH (10:17)
[2018-04-01] MEDS: Ferrous Sulfate 325 MG Tablet PO SCH (10:18)
[2018-04-01] MEDS: Polyethylene Glycol 3350 17 GM Packet PO SCH (10:19)
[2018-04-01 10:56] VITALS: BP 133/64; PULSE 79; TEMP 97.9; O2SAT 96
== END 2018-04-01 11:52 ==
LOC: HSDC 05:06 → HSDI 07:29 → EDSTATUS 07:30 → HCVI 13:41 → HCPC 03-27 18:30
PROVIDERS: ADMIT Thoracic Surgery (Cardiothoracic Vascular Surgery); ATTEND Thoracic Surgery (Cardiothoracic Vascular Surgery)